=== PATIENT | female | born 1995 | race Two or more races ===

== ENCOUNTER 2022-09-23 08:05 | Outpatient (OUT) | payer OTHER, SELFPAY ==
[2022-09-23 08:21] LABS: Basophils Percent Auto 0.3 % (0.2-2.0); Eosinophils Absolute Auto 0.1 10^3/uL (0.0-0.7); Eosinophils Percent Auto 1.4 % (0.9-7.0); Hematocrit 32.9 % (36.0-48.0); Hemoglobin 11.2 g/dL (12.0-16.0); Immature Granulocytes Abs Auto 0.03 10^3/uL (0.00-0.03); Immature Granulocytes Pct Auto 0.5 % (0.0-0.5); Lymphocytes Absolute Auto 1.3 10^3/uL (1.2-3.8); Lymphocytes Percent Auto 20.1 % (20.5-60.0); Mean Corpuscular Hemoglobin 31.6 pg (26.7-34.0); Mean Corpuscular Volume 92.9 fL (81.0-99.0); Mean Platelet Volume 9.3 fL (9.5-13.5); Monocytes Absolute Auto 0.4 10^3/uL (0.3-0.8); Monocytes Percent Auto 5.5 % (1.7-12.0); Neutrophils Absolute Auto 4.7 10^3/uL (1.4-6.5); Neutrophils Percent Auto 72.2 % (43.0-75.0); Platelet Count 212 10^3/uL (150-450); Red Blood Count 3.54 10^6/uL (4.20-5.40); Red Cell Distribution Width 12.6 % (11.0-15.0); White Blood Count 6.5 10^3/uL (4.0-11.0)
[2022-09-23 08:47] LABS: Glucose 1 Hour 109 mg/dL
== END 2022-09-23 08:06 ==
LOC: LAB 08:05
PROVIDERS: PCP Physician Assistant; Visit Provider Physician Assistant
DX: Z34.90 Encounter for supervision of normal pregnancy, unspecified, unspecified trimester (principal)
CPT/HCPCS: 36415; 82950; 85025

== ENCOUNTER 2022-11-28 20:31 | Outpatient (REF) | payer OTHER, SELFPAY | END 2022-11-28 20:32 | disposition home or self-care (01) | LOC: LAB 20:31 | PROVIDERS: PCP Physician Assistant; Visit Provider Obstetrics & Gynecology | DX: Z34.93 Encounter for supervision of normal pregnancy, unspecified, third trimester (principal) | CPT/HCPCS: 87081 ==

== ENCOUNTER 2022-12-06 17:04 | Outpatient (OUT) | payer OTHER, SELFPAY ==
--- NOTE | 2022-12-06 17:05 | US_ITS ---
[address] [address] Patient Name: TARA PACE MRN: [id number] date: 1995 Sex: F Assigned Patient Location: US Current Patient Location: Accession/Order Number: [id number] Exam Date: 12/06/2022 17:06 Report Date: 12/09/2022 15:37 At the request of: KELBY CHAVEZ Procedure: US OB growth EXAMINATION: US OB growth HISTORY: O26.849 SIZE INCONSISTENT WITH DATES COMPARISON: Ultrasound anatomy 08/19/2022 FINDINGS: Heart Rate: 142.1 bpm Number: 1.0 Position: CEPHALIC Amniotic Fluid Volume: 11.4 cm Maximum Vertical Pocket: 3.4 cm BIOMETRY: BPD: 8.5 cm cm; 34 weeks 3 days; <3% HC: 32.6 cmcm; 36 weeks 6 days; 10% AC: 32.6 cm cm; 36 weeks 3 days; 22% FL: 7.5 cm cm; 38 weeks 2 days; 57% EFW: 3020.0 grams; 28% FL/AC: 23.0 FL/BPD: 87.6 HC/AC: 1.0 GESTATIONAL AGE: Age by EDC: 38 weeks 1 days MEAGAN by EDC: 12/19/2022 Age by US: 36 weeks 4 days MEAGAN by US: 12/30/2022 US/US OB growth IMPRESSION: 1. Single live intrauterine with growth detailed above. 2. Biparietal diameter is less than 3rd percentile. Electronically authenticated by: LOU VILLEGAS Date: 12/09/2022 15:37
== END 2022-12-06 17:05 | disposition home or self-care (01) ==
LOC: US 17:04
PROVIDERS: PCP Physician Assistant; Visit Provider Obstetrics & Gynecology
DX: O26.843 Uterine size-date discrepancy, third trimester (principal); Z3A.38 38 weeks gestation of pregnancy
CPT/HCPCS: 76816

== ENCOUNTER 2022-12-12 01:52 | Inpatient (IN) | payer OTHER, SELFPAY ==
[2022-12-12] VITALS (12 sets, daily range): BP systolic 98–117; BP diastolic 56–65; PULSE 61–79; RESP 18; TEMP 36.8–36.9
[2022-12-12 02:24] LABS: Hematocrit 34.3 % (36.0-48.0); Hemoglobin 11.6 g/dL (12.0-16.0); Mean Corpuscular HGB Conc 33.8 g/dL (29.9-35.2); Mean Corpuscular Hemoglobin 30.4 pg (26.7-34.0); Platelet Count 214 10^3/uL (150-450); Red Blood Count 3.81 10^6/uL (4.20-5.40); White Blood Count 7.2 10^3/uL (4.0-11.0)
--- NOTE | 2022-12-12 02:27 | PM.OBPRCVD ---
Procedure Intrapartal events: None Induction method: none Delivery augmentation: rupture of membranes Delivery monitor: external FHT and external uterine Route of delivery: Episiotomy Description: none Laceration description: none Estimated blood loss (mL): 200 Anesthesia type: None Disposition: floor Delivery date: 12/12/22 Gender: female presentation: vertex Placental delivery description: Spontaneous cord description: 3 Vessels
[2022-12-12] MEDS: IBUPROFEN 600 MG TABLET PO ×2 (04:18→17:15)
[2022-12-13 00:23] VITALS: BP 112/54; PULSE 60
[2022-12-13 00:24] VITALS: BP 112/54; PULSE 60; RESP 16; TEMP 36.7
[2022-12-13] MEDS: IBUPROFEN 600 MG TABLET PO (00:35)
--- NOTE | 2022-12-13 01:27 | W.PC.ACHO ---
Registration Status: ADM IN Primary Language: Micronesian Preferred Language: Micronesian Active Medications Generic Name Dose Route Start Last Admin Trade Name Freq PRN Reason Stop Dose Admin Acetaminophen 650 mg 12/12/22 02:28 Acetaminophen 325 Mg Tablet PO Q6H PRN Mild Pain Al Hydroxide/Mg Hydroxide 2,400 mg 12/12/22 02:28 Magnesium Hydroxide 2,400 Mg/10 Ml Oral.Susp PO Q6H PRN Dyspepsia Benzocaine/Menthol 1 applic 12/12/22 02:28 Benzocaine/Menthol 85 Gram Bottle TOPICAL Q2H PRN Pain Carboprost Tromethamine 250 mcg 12/12/22 02:07 Carboprost Tromethamine 250 Mcg/Ml 1 Ml Vial IM 12/13/22 02:08 Q15M PRN Bleeding Diphtheria/Pertussis/Tetanus Vacc 0.5 ml 12/14/22 09:00 Adacel Diph,Pertuss(Acell),Tet Vac/Pf 0.5 Ml Adult Syringe IM 12/14/22 09:01 .ONCE ONE Docusate Sodium 100 mg 12/13/22 09:00 Docusate Sodium 100 Mg Capsule PO BID RADHA Sodium Chloride 1,000 mls @ 125 mls/hr 12/12/22 02:15 Sodium Chloride 0.9% 1,000 Ml IV .Q8H RADHA Ibuprofen 600 mg 12/12/22 02:28 12/13/22 00:35 Ibuprofen 600 Mg Tablet PO 600 mg Q6H PRN Administration Moderate Pain Measles/Mumps/Rubella Vaccine Live 0.5 ml 12/14/22 09:00 Measles,Mumps,Rubella Vacc/Pf 0.5 Ml Vial SQ 12/14/22 09:01 .ONCE ONE Methylergonovine Maleate 0.2 mg 12/12/22 02:07 Methylergonovine Maleate 0.2 Mg Tablet PO 12/13/22 02:08 Q4H PRN Uterine Contractility/Contract Methylergonovine Maleate 0.2 mg 12/12/22 02:07 Methylergonovine Maleate 0.2 Mg/Ml Ampule IM 12/13/22 02:08 ONCE PRN Uterine Contractility/Contract Misoprostol 600 mcg 12/12/22 02:07 Misoprostol 100 Mcg Tablet PO 12/13/22 02:08 ONCE PRN Uterine Bleeding Misoprostol 800 mcg 12/12/22 02:07 Misoprostol 100 Mcg Tablet SL 12/13/22 02:08 ONCE PRN Uterine Bleeding Misoprostol 1,000 mcg 12/12/22 02:07 Misoprostol 100 Mcg Tablet VA 12/13/22 02:08 ONCE PRN Uterine Bleeding Ondansetron HCl 4 mg 12/12/22 02:07 Ondansetron Pf 4 Mg/2 Ml Vial IV Q6H PRN Nausea And Vomiting Ondansetron HCl 4 mg 12/12/22 02:07 Ondansetron 4 Mg Rapdis Tablet SL Q6H PRN Nausea And Vomiting Senna 17.2 mg 12/12/22 20:00 Sennosides 8.6 Mg Tablet PO QHS PRN Constipation Simethicone 80 mg 12/12/22 02:28 Simethicone 80 Mg Tab.Chew PO QID PRN Abdominal Distention Temazepam 15 mg 12/12/22 02:28 Temazepam 15 Mg Capsule PO QHS PRN Sleep Witch Leila/Glycerin 1 pad 12/12/22 02:28 Glycerin/Witch Leila Pads TOPICAL Q2H PRN Pain Diet Category Date Time Status Regular Consistency Diet Diet 12/12/22 Dinner Active Neurology Patient orientation (short person,place,time,situation list) Respiratory Lung sounds [Bilateral clear Throughout] Lung sounds [Bilateral clear Throughout] Oxygen Delivery Method Room Air Cardiology Heart Sounds Strong,Regular Bowels Date of Last Bowel Movement 12/13/22 Renal Bladder Pattern Continent
[2022-12-13 05:53] LABS: Basophils Percent Auto 0.4 % (0.2-2.0); Eosinophils Absolute Auto 0.2 10^3/uL (0.0-0.7); Eosinophils Percent Auto 2.6 % (0.9-7.0); Hematocrit 32.6 % (36.0-48.0); Immature Granulocytes Abs Auto 0.06 10^3/uL (0.00-0.03); Immature Granulocytes Pct Auto 0.7 % (0.0-0.5); Lymphocytes Absolute Auto 2.3 10^3/uL (1.2-3.8); Lymphocytes Percent Auto 25.7 % (20.5-60.0); Mean Corpuscular HGB Conc 33.7 g/dL (29.9-35.2); Mean Corpuscular Hemoglobin 31.1 pg (26.7-34.0); Mean Corpuscular Volume 92.1 fL (81.0-99.0); Mean Platelet Volume 10.1 fL (9.5-13.5); Monocytes Absolute Auto 0.6 10^3/uL (0.3-0.8); Monocytes Percent Auto 6.8 % (1.7-12.0); Neutrophils Absolute Auto 5.8 10^3/uL (1.4-6.5); Neutrophils Percent Auto 63.8 % (43.0-75.0); Platelet Count 190 10^3/uL (150-450); Red Blood Count 3.54 10^6/uL (4.20-5.40); Red Cell Distribution Width 13.3 % (11.0-15.0); White Blood Count 9.1 10^3/uL (4.0-11.0)
--- NOTE | 2022-12-13 07:24 | W.PC.ACHO ---
Registration Status: ADM IN Primary Language: Algerian Preferred Language: Algerian Active Medications 0715- Report given to Jaxson Adler RN Generic Name Dose Route Start Last Admin Trade Name Freq PRN Reason Stop Dose Admin Acetaminophen 650 mg 12/12/22 02:28 Acetaminophen 325 Mg Tablet PO Q6H PRN Mild Pain Al Hydroxide/Mg Hydroxide 2,400 mg 12/12/22 02:28 Magnesium Hydroxide 2,400 Mg/10 Ml Oral.Susp PO Q6H PRN Dyspepsia Benzocaine/Menthol 1 applic 12/12/22 02:28 Benzocaine/Menthol 85 Gram Bottle TOPICAL Q2H PRN Pain Diphtheria/Pertussis/Tetanus Vacc 0.5 ml 12/14/22 09:00 Adacel Diph,Pertuss(Acell),Tet Vac/Pf 0.5 Ml Adult Syringe IM 12/14/22 09:01 .ONCE ONE Docusate Sodium 100 mg 12/13/22 09:00 Docusate Sodium 100 Mg Capsule PO BID RADHA Sodium Chloride 1,000 mls @ 125 mls/hr 12/12/22 02:15 Sodium Chloride 0.9% 1,000 Ml IV .Q8H RADHA Ibuprofen 600 mg 12/12/22 02:28 12/13/22 00:35 Ibuprofen 600 Mg Tablet PO 600 mg Q6H PRN Administration Moderate Pain Measles/Mumps/Rubella Vaccine Live 0.5 ml 12/14/22 09:00 Measles,Mumps,Rubella Vacc/Pf 0.5 Ml Vial SQ 12/14/22 09:01 .ONCE ONE Ondansetron HCl 4 mg 12/12/22 02:07 Ondansetron Pf 4 Mg/2 Ml Vial IV Q6H PRN Nausea And Vomiting Ondansetron HCl 4 mg 12/12/22 02:07 Ondansetron 4 Mg Rapdis Tablet SL Q6H PRN Nausea And Vomiting Senna 17.2 mg 12/12/22 20:00 Sennosides 8.6 Mg Tablet PO QHS PRN Constipation Simethicone 80 mg 12/12/22 02:28 Simethicone 80 Mg Tab.Chew PO QID PRN Abdominal Distention Temazepam 15 mg 12/12/22 02:28 Temazepam 15 Mg Capsule PO QHS PRN Sleep Witch Leila/Glycerin 1 pad 12/12/22 02:28 Glycerin/Witch Leila Pads TOPICAL Q2H PRN Pain Diet Category Date Time Status Regular Consistency Diet Diet 12/12/22 Dinner Active Respiratory Lung sounds [Bilateral clear Throughout] Oxygen Delivery Method Room Air Bowels Date of Last Bowel Movement 12/13/22
[2022-12-13 09:42] VITALS: BP 122/58; PULSE 72
--- NOTE | 2022-12-13 10:54 | PM.OBPN ---
OB - PN: Subj Subjective Patient comments: no complaints [place] status: doing well Exam Constitutional Vital Signs, click to edit/add: Last Vital Signs Temp 98.1 F 12/13/22 00:24 Pulse 72 12/13/22 09:42 Resp 16 12/13/22 00:24 BP 122/58 12/13/22 09:42 O2 Del Method Room Air 12/13/22 00:24 Documenting provider has reviewed patient's vital signs: yes Common normals: no apparent distress Respiratory Common normals: normal respiratory effort and clear to auscultation bilaterally Cardio Common normals: regular rate and regular rhythm Extremity Common normals: no clubbing, cyanosis or edema and no calf tenderness Results Labs Labs: Short CBC 12/13/22 Range/Units 05:46 WBC 9.1 (4.0-11.0) 10^3/uL Hgb 11.0 L (12.0-16.0) g/dL Hct 32.6 L (36.0-48.0) % Plt Count 190 (150-450) 10^3/uL OB - PN: A/P Plan - Vaginal Delivery day: 2 Plan: routine care, discharge home and follow up 6 weeks Time Spent with Patient Time: Total time spent is greater than 50% in coordination of care (as documented) at patient's floor/unit and/or counseling patient: Total time spent with greater than 50% in coordination of care (as documented) at patient's floor/unit and/or counseling patient: less than 15 minutes
== END 2022-12-13 13:40 | disposition home or self-care (01) | DRG 807 ==
PROVIDERS: Admitting Provider Obstetrics & Gynecology; PCP Physician Assistant; Visit Provider Obstetrics & Gynecology
DX: O80 Encounter for full-term uncomplicated delivery (principal); Z37.0 Single live birth; Z3A.00 Weeks of gestation of pregnancy not specified
CPT/HCPCS: 36415; 80307; 85025; 85027; 86850; 86900; 86901; 96374

== ENCOUNTER 2023-01-27 21:02 | Outpatient (REF) | payer OTHER, SELFPAY ==
[2023-01-31 10:10] LABS: Age Gdln ACOG Testing Note (.); IGP, rfx Aptima HPV ASCU Note (.)
== END 2023-01-27 21:03 | disposition home or self-care (01) ==
LOC: LAB 21:02
PROVIDERS: PCP Physician Assistant; Visit Provider Obstetrics & Gynecology
DX: R87.612 Low grade squamous intraepithelial lesion on cytologic smear of cervix (LGSIL) (principal)
CPT/HCPCS: G0145

== ENCOUNTER 2023-08-05 22:04 | Outpatient (REF) | payer OTHER, SELFPAY ==
[2023-08-12 12:10] LABS: Age Gdln ACOG Testing Note (.); IGP, rfx Aptima HPV ASCU Note (.)
== END 2023-08-05 22:05 | disposition home or self-care (01) ==
LOC: LAB 22:04
PROVIDERS: PCP Physician Assistant; Visit Provider Obstetrics & Gynecology
DX: Z01.419 Encounter for gynecological examination (general) (routine) without abnormal findings (principal)
CPT/HCPCS: G0145

== ENCOUNTER 2023-08-26 15:23 | Outpatient (REF) | payer OTHER, SELFPAY | END 2023-08-26 15:24 | disposition home or self-care (01) | LOC: LAB 15:23 | PROVIDERS: PCP Physician Assistant; Visit Provider Obstetrics & Gynecology | DX: R87.612 Low grade squamous intraepithelial lesion on cytologic smear of cervix (LGSIL) (principal) | CPT/HCPCS: 88305 ==

== ENCOUNTER 2023-10-17 08:50 | Outpatient (OUT) | payer OTHER, SELFPAY ==
--- OUTSIDE RECORDS SUMMARY | 2023-10-17 09:03 | XMS_ITS | CCD ---
Author Organization [facility] Care Team Providers Care Mine Inspector Name Role Phone KRYSTINA SEGURA Unavailable Unavailable ADITYA, ROB Unavailable Unavailable CHARLES, SEGUN AVERY Unavailable Unavailabl e ADITYA, ROB Unavailable Unavailable KATHY ., DR LAMA Attending Unavailable REQUEST, NONE LISTED Primary Care Unavaila ble KATHY ., DR LAMA Consulting Unavailable KATHY ., DR LAMA Admitting Unavailable KATHY ., DR LAMA Procedure Practitioner Unavail able KATHY ., DR LAMA Attending Unavailable REQUEST, DR FAJARDO LISTED Primary Care Unavaila ble KATHY ., DR LAMA Admitting Unavailable KARASIK ., DR HAMMONDS Attending Unavailabl e KARASIK ., DR HAMMONDS Consulting Unavailabl e KARASIK ., DR HAMMONDS Admitting Unavailabl e REQUEST, DR FAJARDO LISTED Primary Care Unavaila ble KATHY ., DR LAMA Admitting Unavailable KATHY ., DR LAMA Attending Unavailable REQUEST, DR FAJARDO LISTED Primary Care Unavaila ble WEST, DR MIRANDA Barrett Consulting Unavailable KATHY ., DR LAMA Consulting Unavailable KATHY ., DR LAMA Admitting Unavailable KATHY ., DR LAMA Attending Unavailable REQUEST, DR FAJARDO LISTED Primary Care Unavaila ble KATHY ., DR LAMA Consulting Unavailable KATHY ., DR LAMA Attending Unavailable REQUEST, DR FAJARDO LISTED Primary Care Unavaila ble KATHY ., DR LAMA Consulting Unavailable KATHY ., DR LAMA Admitting Unavailable KATHY ., DR LAMA Admitting Unavailable KATHY ., DR LAMA Attending Unavailable REQUEST, DR FAJARDO LISTED Primary Care Unavaila ble KATHY ., DR LAMA Consulting Unavailable ZIEBER, DR LOU Chávez Consulting Unavailable KATHYKELBY Attending Unavailable KATHY, KELBY Attending Unavailable KATHY, KELBY Attending Unavailable Problems Active Problems Problem Classification Problem Date Documented Date Episodic/Chronic Immunizations and screening for infectious disease (3 sources) Encounter for screening for infections with a predominantly sexual mode of transmission; Translations: [Encounter for screening for human papillomavirus (HPV)] Onset: 12-26-2016 Episodic Menstrual disorders (4 sources) Irregular menstruation, unspecified; Translations: [IRREGULAR MENSTRUATION UNSPECIFIED] Onset: 07-12-2022 Chronic Other female genital disorders (1 source) Other specified noninflammatory disorders of vagina; Translations: [OTH SPEC NONINFLAMMATORY D/O VAGINA] Onset: 07-08-2022 Episodic Other and delivery including normal (13 sources) state, incidental; Translations: [Encounter for supervision of normal , unspecified, second trimester] Onset: 10-15-2021 Episodic Unclassified (10 sources) Encounter for screening for malignant neoplasm of cervix; Translations: [Encounter for screening, unspecified] Onset: 01-30-2017 Episodic Unclassified (1 source) Other microscopic hematuria; Translations: [Other microscopic hematuria] Onset: 12-26-2016 Unclassified (1 source) CONTACT W/AND (SUSP) EXPOS COVID-19; Translations: [CONTACT W/AND (SUSP) EXPOS COVID-19] Onset: 10-16-2021 Past or Other Problems Problem Classification Problem Date Documented Da te Episodic/Chronic Bacterial infection (1 source) Chlamydial infection, unspecified; Translations: [Chlamydial infection, unspecified] Onset: 01-30-2017 Episodic Genitourinary symptoms and ill-defined conditions (3 sources) Dysuria; Translations: [Frequency of micturition] Onset: 12-26-2016 Episodic OB-related trauma to perineum and vulva (1 source) First degree perineal laceration during delivery; Translations: [FIRST DEG PERINEAL LAC DUR DELIV] Onset: 10-16-2021 Episodic Other complications of (3 sources) Maternal care for excessive growth, third trimester, not applicable or unspecified; Translations: [MAT CARE EXCSS FTL GRTH 3RD TRI UNS] Onset: 10-09-2021 Episodic Residual codes; unclassified (1 source) 39 weeks gestation of ; Translations: [39 WEEKS GESTATION OF ] Onset: 10-16-2021 Episodic Results Test Name Value Interpretation Reference Range Facility US PREG CERVICAL LENGTHon US PREG CERVICAL LENGTH EXAMINATION: US PREG ANATOMY SINGLE, US PREG CERVICAL LENGTH HISTORY: Patient currently COMPARISON: No relevant comparison available. TECHNIQUE: Transabdominal sonographic examination was performed for obstetrical and evaluation. FINDINGS: Number: 1 Heart Rate: 136 H.B. /min Amniotic Fluid Volume: Subjectively normal Placental Location: Anterior fundal. Grade 0. Placental edge 9 cm from the internal os position: Breech presentation, longitudinal lie Cervix Length: 3.7 cm, closed Normal anatomy: Lateral ventricles, cerebellum, posterior fossa, nose, lips, orbits, four-chamber heart, RVOT, LVOT, diaphragm, stomach, kidneys, abdominal cord insertion, bladder, umbilical cord, three-vessel cord, spine, extremities BIOMETRY: BPD: 5 cm 21 weeks 1 day 6% HC: 19.6 cm 21 weeks 6 days, 12% AC: 18.4 cm, 23 weeks 1 day, 63% FL: 3.9 cm 22 weeks 4 days, 38% EFW:529 g, 1 lb. 3 oz., 51%; FL/AC: 21.2 FL/BPD: 78.2 HC/AC: 1.07 GESTATIONAL AGE: Age by EDC: 22 weeks 4 days MEAGAN by EDC: 12/19/2022 Age by current US: 22 weeks 1 day MEAGAN by current US: 12/22/2022 IMPRESSION: Normal anatomy scan Closed cervix measuring 3.7 cm in length *Reference: AIUM Practice Guideline for the performance of Obstetric Ultrasound Examinations, January 19, 2007. Electronically authenticated by: MIRANDA ROPER Date: 2022-08-21 07:30 Normal [facility] AFP MATERNAL FOR SPINA BIFID Aon 08-09-2022 AFP MoM 1.14 Normal [facility] Comment on above: Performed By: #### 4 [id number] #### [facility] [address] [address] [address] Farideh Kapoor AFP Value 73.2 ng/mL Normal [facility] Comment on above: Performed By: #### 4 [id number] #### [facility] [address] [address] [address] Farideh Kapoor AFP, Serum for Spina Bifida Report Normal [facility] Comment on above: Performed By: #### 4 [id number] #### [facility] [address] [place] [address] Dr. Farideh Kapoor Comment Comment Normal [facility] Comment on above: Result Comment: Reena Finn, Ph.D., [facility] Director . References: Available Upon Request. . Multiples Of Median Cutoffs For AFP Elevations [place] 2.5 Black 2.8 IDD 2.0 Twins 4.5 Abbreviation Definitions IDD - Insulin Dep Diabetes OSBR - Open Spina Bifida Risk . For further inquiries contact [employer] [facility] at [phone]. . This test was developed and its performance characteristics determined by [employer]. It has not been cleared or approved by the Food and Drug Administration. Performed By: #### 4 [id number] #### [facility] [address] [place] [address] Dr. Farideh Kapoor Gest Age Collection Date 20.7 weeks Normal [facility] Comment on above: Performed By: #### 4 [id number] #### [facility] [address] [place] [address] Dr. Farideh Kapoor Gestat, Age Based on Ultrasound Normal [facility] Comment on above: Result Comment: 17.1 on 07/12/2022 Recalculations are not recommended when gestational dating by LMP and ultrasound are within 10 days. Performed By: #### 4 [id number] #### [facility] [address] [place] [address] Dr. Farideh Kapoor Insulin Dep Diabetes No Normal [facility] Comment on above: Performed By: #### 4 [id number] #### [facility] [address] [place] [address] Dr. Farideh Kapoor Interpretation Comment Normal [facility] Comment on above: Result Comment: Inte rpretation: Screen Negative . This result is screen negative for OSB. The AFP MoM calculated is based on the gestational age provided. MS-AFP can identify up to 80% of open neural tube defects. Closed neural tube defects and some open defects may not be detected by this test. This test does not screen for Down Syndrome or Trisomy 18. If screening for Down Syndrome or Trisomy 18 is desired, contact [employer] to discuss available options. The [place] [employer] recommends amniocentesis be offered to women age 35 and older. Performed By: #### 4 [id number] #### [facility] [address] [place] [address] Dr. Farideh Kapoor [age] Normal [facility] Comment on above: Performed By: #### 4 [id number] #### [facility] [address] [place] [address] Dr. Farideh Kapoor Multiple Gestation No Normal [facility] Comment on above: Performed By: #### 4 [id number] #### [facility] [address] [place] [address] Dr. Farideh Kapoor OSBR Risk 1 [place] [address] [facility] Comment on above: Performed By: #### 4 [id number] #### [facility] [address] [place] [address] Dr. Farideh Kapoor PDF . Normal [facility] Comment on above: Performed By: #### 4 [id number] #### [facility] [address] [place] [address] Dr. Farideh Kapoor Race Normal [facility] Comment on above: Performed By: #### 4 [id number] #### [facility] [address] [place] [address] Dr. Farideh Kapoor Test Results: Negative [facility] Comment on above: Performed By: #### 4 [id number] #### [facility] [address] [place] [address] Dr. Farideh Kapoor HEP B SURFACE ANTIGEN SCREEN on 08-08-2022 HBsAg Screen Negative Normal Negative [facility] Comment on above: Performed By: #### H BSANS #### [facility] [address] [place] [address] Dr. Farideh Kapoor HEPATITIS C VIRUS AB W/ REFL EX QUANTon 08-08-2022 HCV AB Non-Reactive Normal Non Reactive [facility] Comment on above: Performed By: #### H CVPCRR #### [facility] [address] [place] [address] Dr. Farideh Kapoor Interpretation: Comment Normal [facility] Comment on above: Result Comment: Not infected with HCV unless early or acute infection is suspected (which may be delayed in an immunocompromised individual), or other evidence exists to indicate HCV infection. Performed By: #### H CVPCRR #### [facility] [address] [place] [address] Dr. Farideh Kapoor HIV 1 AND 2 WITH REFLEXon HIV Screen 4th Generation wRfx Non-Reactive Normal Non Reactive [facility] Comment on above: Result Comment: HIV Negative HIV-1/HIV-2 antibodies and HIV-1 p24 antigen were NOT detected. There is no laboratory evidence of HIV infection. Performed By: #### C BC #### [facility] [address] [place] [address] Dr. Farideh Kapoor RPR QUANTon 08-08-2022 Rapid Plasma Reagin, Quant Non-Reactive Normal NonRea<1:1 [facility] Comment on above: Result Comment: Plea se Note: This test does not meet current guidelines for screening and diagnosis of syphilis. This test is intended for following treatment response in patients being treated for syphilis infection. To screen for syphilis infection, a reflex cascade that includes both RPR and a treponema-specific assay should be utilized, such as Treponema pallidum (Syphilis) Screening [place] (869468) or Rapid Plasma Reagin (RPR) Test With Reflex to Quantitative RPR and Confirmatory Treponema pallidum Antibodies (153266). Performed By: #### 4 [id number] #### [facility] [address] [place] [address] Dr. Farideh Kapoor RUBELLA AB IGGon 08-08-2022 Rubella Antibodies, IgG <0.90 Critically low Immune >0.99 [facility] Comment on above: Result Comment: Non- immune <0.90 Equivocal 0.90 - 0.99 Immune >0.99 Performed By: #### 4 [id number] #### [facility] [address] [place] [address] Dr. Farideh Kapoor CBC AUTO DIFFon 08-06-2022 BASO # 0.0 103/ul Normal 0.0-0.1 [facility] Comment on above: Performed By: #### 4 [id number] #### [facility] [address] [place] [address] Dr. Farideh Kapoor Basophils/100 WBC (Bld) 0.2 % Normal 0.2-2.0 [facility] Comment on above: Performed By: #### 4 [id number] #### [facility] [address] [place] [address] Dr. Farideh Kapoor EO # 0.1 103/ul Normal 0.0-0.7 [facility] Comment on above: Performed By: #### 4 [id number] #### [facility] [address] [place] [address] Dr. Farideh Kapoor Eosinophils/100 WBC (Bld) 0.7 % Critically low 0.9-7.0 [facility] Comment on above: Performed By: #### 4 [id number] #### [facility] [address] [place] [address] Dr. Farideh Kapoor Erythrocyte distribution width (RBC) [Ratio] 13.2 % Normal 11.0-15.0 [facility] Comment on above: Performed By: #### 4 [id number] #### [facility] [address] [place] [address] Dr. Farideh Kapoor Hematocrit (Bld) [Volume fraction] 35.1 % Critically low 36.0-48.0 [facility] Comment on above: Performed By: #### 4 [id number] #### [facility] [address] [place] [address] Dr. Farideh Kapoor Hemoglobin (Bld) [Mass/Vol] 12.1 g/dL Normal 12.0-16.0 [facility] Comment on above: Performed By: #### 4 [id number] #### [facility] [address] [place] [address] Dr. Farideh Kapoor IG # 0.03 10e3/ul Normal 0.00-0.03 [facility] Comment on above: Performed By: #### 4 [id number] #### [facility] [address] [place] [address] Dr. Farideh Kapoor IG % 0.3 % Normal 0.0-0.5 [facility] Comment on above: Performed By: #### 4 [id number] #### [facility] [address] [place] [address] Dr. Farideh Kapoor LYMPH # 1.0 103/ul Critically low 1.2-3.8 [facility] Comment on above: Performed By: #### 4 [id number] #### [facility] [address] [place] [address] Dr. Farideh Kapoor Lymphocytes/100 WBC (Bld) 11.1 % Critically low 20.5-60.0 [facility] Comment on above: Performed By: #### 4 [id number] #### [facility] [address] [place] [address] Dr. Farideh Kapoor MANUAL DIFF REQ NO Normal [facility] Comment on above: Performed By: #### 4 [id number] #### [facility] [address] [place] [address] Dr. Farideh Kapoor MCH (RBC) [Entitic mass] 31.0 pg Normal 26.7-34.0 [facility] Comment on above: Performed By: #### 4 [id number] #### [facility] [address] [place] [address] Dr. Farideh Kapoor MCHC (RBC) [Mass/Vol] 34.5 g/dL Normal 29.9-35.2 [facility] Comment on above: Performed By: #### 4 [id number] #### [facility] [address] [place] [address] Dr. Farideh Kapoor MCV (RBC) [Entitic vol] 90.0 fL Normal 81.0-99.0 [facility] Comment on above: Performed By: #### 4 [id number] #### [facility] [address] [place] [address] Dr. Farideh Kapoor MONO # 0.4 103/ul Normal 0.3-0.8 [facility] Comment on above: Performed By: #### 4 [id number] #### [facility] [address] [place] [address] Dr. Farideh Kapoor Monocytes/100 WBC (Bld) 4.6 % Normal 1.7-12.0 [facility] Comment on above: Performed By: #### 4 [id number] #### [facility] [address] [address] [address] Farideh Kapoor NEUT # 7.4 103/ul Critically high 1.4-6.5 [facility] Comment on above: Performed By: #### 4 [id number] #### [facility] [address] [place] [address] Dr. Farideh Kapoor Neutrophils/100 WBC (Bld) 83.1 % Critically high 43.0-75.0 [facility] Comment on above: Performed By: #### 4 [id number] #### [facility] [address] [place] [address] Dr. Farideh Kapoor Platelet mean volume (Bld) [Entitic vol] 9.0 fL Critically low 9.5-13.5 [facility] Comment on above: Performed By: #### 4 [id number] #### [facility] [address] [place] [address] Dr. Farideh Kapoor PLT 257 103/ul Normal 150-450 [facility] Comment on above: Performed By: #### 4 [id number] #### [facility] [address] [place] [address] Dr. Farideh Kapoor RBC 3.90 106/ul Critically low 4.20-5.40 [facility] Comment on above: Performed By: #### 4 [id number] #### [facility] [address] [place] [address] Dr. Farideh Kapoor WBC 8.9 103/ul Normal 4.0-11.0 [facility] Comment on above: Performed By: #### 4 [id number] #### [facility] [address] [place] [address] Dr. Farideh Kapoor CULTURE URINEon 08-06-2022 CULTURE URINE Culture Observations : NO GROWTH. Normal [facility] Comment on above: Performed By: #### U RCX #### [facility] [address] [place] [address] Dr. Farideh Kapoor GLYCOHEMOGLOBIN A1Con 2022 ADA RECOMMENDATION SEE BELOW Normal [facility] Comment on above: Result Comment: ADA RECOMMENDED LIMIT 4.0 - 6.0 ADA THERAPEUTIC TARGET < 7.0 ACTION SUGGESTED > 7.0 Performed By: #### C BC #### [facility] [address] [place] [address] Dr. Farideh Kapoor Glucose [Mass/Vol] 74 mg/dL Normal [facility] Comment on above: Performed By: #### C BC #### [facility] [address] [place] [address] Dr. Farideh Kapoor HbA1c (Bld) [Mass fraction] 4.2 % Critically low 4.5-6.2 [facility] Comment on above: Performed By: #### C BC #### [facility] [address] [place] [address] Dr. Farideh Kapoor TSHon 08-06-2022 TSH 1.522 uIU/mL Normal 0.358-3.740 [facility] Comment on above: Performed By: #### T SH #### [facility] [address] [place] [address] Dr. Farideh Kapoor TYPE AND SCREENon 08-06-2022 TYPE AND SCREEN Negative Normal [facility] Comment on above: Performed By: #### T NS #### [facility] [address] [place] [address] Dr. Farideh Kapoor US PREG DATING >14WEEKSon US PREG DATING >14WEEKS EXAMINATION: US PREG DATING >14WEEKS HISTORY: Missed period COMPARISON: No relevant comparison available. FINDINGS: Heart Rate: 148.0 bpm Number: 1.0 Position: BREECH Amniotic Fluid Volume: Subjectively normal BIOMETRY: BPD: 3.5 cm cm; 16 weeks 5 days HC: 12.7 cmcm; 16 weeks 3 days AC: 12.0 cm cm; 17 weeks 5 days FL: 2.5 cm cm; 17 weeks 5 days EFW: 198.3 grams FL/AC: 21.1 FL/BPD: 73.1 HC/AC: 1.1 GESTATIONAL AGE: Age by EDC: Unknown LMP MEAGAN by EDC: Age by US: 17 weeks 1 day MEAGAN by US: 12/19/2022 IMPRESSION: 1. Single live intrauterine 17 weeks 1 day Electronically authenticated by: LOU ZENGSAMANMARGARITA Date: 2022-07-12 10:40 Normal [facility] PAP ACOG PANEL 2: 21 to 29on 07-11-2022 . . Normal [facility] Comment on above: Performed By: #### 4 [id number] #### [facility] [address] [place] [address] Dr. Farideh Kapoor Age Gdln ACOG Testing - Normal [facility] Comment on above: Performed By: #### 4 [id number] #### [facility] [address] [place] [address] Dr. Farideh Kapoor DIAGNOSIS: Comment Abnormal [facility] Comment on above: Result Comment: EPIT HELIAL CELL ABNORMALITY. LOW GRADE SQUAMOUS INTRAEPITHELIAL LESION (LSIL). Performed By: #### 4 [id number] #### [facility] [address] [place] [address] Dr. Farideh Kapoor Electronically signed by: Comment Normal [facility] Comment on above: Result Comment: Flavia Graham MD, Pathologist Performed By: #### 4 [id number] #### [facility] [address] [place] [address] Dr. Farideh Kapoor Methodology: Comment [facility] Comment on above: Result Comment: This liquid based ThinPrep(R) pap test was screened with the use of an image guided system. Performed By: #### 4 [id number] #### [facility] [address] [place] [address] Dr. Farideh Kapoor Note: Comment Normal [facility] Comment on above: Result Comment: The Pap smear is a screening test designed to aid in the detection of premalignant and malignant conditions of the uterine cervix. It is not a diagnostic procedure and should not be used as the sole means of detecting cervical cancer. Both false-positive and false-negative reports do occur. . Performed By: #### 4 [id number] #### [facility] [address] [place] [address] Dr. Fardieh Kapoor Pathologist Provided ICD10 Comment Normal [facility] Comment on above: Result Comment: [id number] Performed By: #### 4 [id number] #### [facility] [address] [place] [address] Dr. Farideh Kapoor Performed by: Comment Normal [facility] Comment on above: Result Comment: Anabell Ferraro, Smash Fixer Performed By: #### 4 [id number] #### [facility] [address] [address] [address] Farideh Kapoor Recommendation: Comment Abnormal [facility] Comment on above: Result Comment: Sugg est follow up as clinically appropriate. Performed By: #### 4 [id number] #### [facility] [address] [place] [address] Dr. Farideh Kapoor Reflex Criteria: Comment Normal [facility] Comment on above: Result Comment: The HPV DNA reflex criteria were not met with this specimen result therefore, no HPV testing was performed. . Performed By: #### 4 [id number] #### [facility] [address] [place] [address] Dr. Farideh Kapoor Specimen adequacy: Comment Normal [facility] Comment on above: Result Comment: Sati sfactory for evaluation. Endocervical and/or squamous metaplastic cells (endocervical component) are present. Performed By: #### 4 [id number] #### [facility] [address] [place] [address] Dr. Farideh Kapoor CHLAMYDIA/GONOCOCCUS TOMAS (SW AB/URINE/PAPon 07-05-2022 Chlamydia trachomatis, TOMAS Negative Normal Negative [facility] Comment on above: Performed By: #### C T/NGNA #### [facility] [address] [place] [address] Dr. Farideh Kapoor Neisseria gonorrhoeae, TOMAS Negative Normal Negative [facility] Comment on above: Performed By: #### C T/NGNA #### [facility] [address] [place] [address] Dr. Farideh Kapoor VAGINITIS/VAGINOSIS DNA PROB Arnel 07-04-2022 Margarita species Negative Normal Negative [facility] Comment on above: Performed By: #### 4 [id number] #### [facility] [address] [place] [address] Dr. Farideh Kapoor Gardnerella vaginalis Positive Abnormal Negative [facility] Comment on above: Performed By: #### 4 [id number] #### [facility] [address] [address] [address] Farideh Kapoor Trichomonas vaginalis Negative Normal Negative [facility] Comment on above: Performed By: #### 4 [id number] #### [facility] [address] [place] [address] Dr. Farideh Kapoor CBC AUTO DIFFon 10-10-2021 BASO # 0.0 103/ul Normal 0.0-0.1 [facility] Comment on above: Performed By: #### C BC #### [facility] [address] [place] [address] Dr. Farideh Kapoor Basophils/100 WBC (Bld) 0.2 % Normal 0.2-2.0 [facility] Comment on above: Performed By: #### C BC #### [facility] [address] [place] [address] Dr. Farideh Kapoor EO # 0.1 103/ul Normal 0.0-0.7 [facility] Comment on above: Performed By: #### C BC #### [facility] [address] [place] [address] Dr. Farideh Kapoor Eosinophils/100 WBC (Bld) 0.9 % Normal 0.9-7.0 [facility] Comment on above: Performed By: #### C BC #### [facility] [address] [place] [address] Dr. Farideh Kapoor Erythrocyte distribution width (RBC) [Ratio] 12.7 % Normal 11.0-15.0 [facility] Comment on above: Performed By: #### C BC #### [facility] [address] [place] [address] Dr. Farideh Kapoor Hematocrit (Bld) [Volume fraction] 31.9 % Critically low 36.0-48.0 [facility] Comment on above: Performed By: #### C BC #### [facility] [address] [place] [address] Dr. Farideh Kapoor Hemoglobin (Bld) [Mass/Vol] 11.2 g/dL Critically low 12.0-16.0 [facility] Comment on above: Performed By: #### C BC #### [facility] [address] [place] [address] Dr. Farideh Kapoor IG # 0.05 10e3/ul Critically high 0.00-0.03 [facility] Comment on above: Performed By: #### C BC #### [facility] [address] [place] [address] Dr. Farideh Kapoor IG % 0.4 % Normal 0.0-0.5 [facility] Comment on above: Performed By: #### C BC #### [facility] [address] [place] [address] Dr. Farideh Kapoor LYMPH # 1.3 103/ul Normal 1.2-3.8 [facility] Comment on above: Performed By: #### C BC #### [facility] [address] [place] [address] Dr. Farideh Kapoor Lymphocytes/100 WBC (Bld) 10.5 % Critically low 20.5-60.0 [facility] Comment on above: Performed By: #### C BC #### [facility] [address] [place] [address] Dr. Farideh Kapoor MANUAL DIFF REQ NO Normal [facility] Comment on above: Performed By: #### C BC #### [facility] [address] [place] [address] Dr. Farideh Kapoor MCH (RBC) [Entitic mass] 31.8 pg Normal 26.7-34.0 [facility] Comment on above: Performed By: #### C BC #### [facility] [address] [place] [address] Dr. Farideh Kapoor MCHC (RBC) [Mass/Vol] 35.1 g/dL Normal 29.9-35.2 [facility] Comment on above: Performed By: #### C BC #### [facility] [address] [place] [address] Dr. Farideh Kapoor MCV (RBC) [Entitic vol] 90.6 fL Normal 81.0-99.0 [facility] Comment on above: Performed By: #### C BC #### [facility] [address] [address] [address] Farideh Kapoor MONO # 1.2 103/ul Critically high 0.3-0.8 [facility] Comment on above: Performed By: #### C BC #### [facility] [address] [address] [address] Farideh Kapoor Monocytes/100 WBC (Bld) 9.4 % Normal 1.7-12.0 [facility] Comment on above: Performed By: #### C BC #### [facility] [address] [address] [address] Farideh Kapoor NEUT # 9.6 103/ul Critically high 1.4-6.5 [facility] Comment on above: Performed By: #### C BC #### [facility] [address] [place] [address] Dr. Farideh Kapoor Neutrophils/100 WBC (Bld) 78.6 % Critically high 43.0-75.0 [facility] Comment on above: Performed By: #### C BC #### [facility] [address] [address] [address] Farideh Kapoor Platelet mean volume (Bld) [Entitic vol] 9.2 fL Critically low 9.5-13.5 [facility] Comment on above: Performed By: #### C BC #### [facility] [address] [address] [address] Farideh Kapoor PLT 177 103/ul Normal 150-450 [facility] Comment on above: Performed By: #### C BC #### [facility] [address] [address] [address] Farideh Kapoor RBC 3.52 106/ul Critically low 4.20-5.40 [facility] Comment on above: Performed By: #### C BC #### [facility] [address] [address] [address] Farideh Kapoor WBC 12.3 103/ul Critically high 4.0-11.0 [facility] Comment on above: Performed By: #### C BC #### [facility] [address] [place] [address] Dr. Farideh Kapoor CBC AUTO DIFFon 10-09-2021 BASO # 0.0 103/ul Normal 0.0-0.1 [facility] Comment on above: Performed By: #### C BC #### [facility] [address] [place] [address] Dr. Farideh Kapoor Basophils/100 WBC (Bld) 0.1 % Critically low 0.2-2.0 [facility] Comment on above: Performed By: #### C BC #### [facility] [address] [place] [address] Dr. Farideh Kapoor EO # 0.1 103/ul Normal 0.0-0.7 [facility] Comment on above: Performed By: #### C BC #### [facility] [address] [place] [address] Dr. Farideh Kapoor Eosinophils/100 WBC (Bld) 1.1 % Normal 0.9-7.0 [facility] Comment on above: Performed By: #### C BC #### [facility] [address] [place] [address] Dr. Farideh Kapoor Erythrocyte distribution width (RBC) [Ratio] 12.7 % Normal 11.0-15.0 [facility] Comment on above: Performed By: #### C BC #### [facility] [address] [place] [address] Dr. Farideh Kapoor Hematocrit (Bld) [Volume fraction] 34.5 % Critically low 36.0-48.0 [facility] Comment on above: Performed By: #### C BC #### [facility] [address] [place] [address] Dr. Farideh Kapoor Hemoglobin (Bld) [Mass/Vol] 12.0 g/dL Normal 12.0-16.0 [facility] Comment on above: Performed By: #### C BC #### [facility] [address] [place] [address] Dr. Farideh Kapoor IG # 0.02 10e3/ul Normal 0.00-0.03 [facility] Comment on above: Performed By: #### C BC #### [facility] [address] [place] [address] Dr. Farideh Kapoor IG % 0.2 % Normal 0.0-0.5 [facility] Comment on above: Performed By: #### C BC #### [facility] [address] [place] [address] Dr. Farideh Kapoor LYMPH # 1.2 103/ul Normal 1.2-3.8 [facility] Comment on above: Performed By: #### C BC #### [facility] [address] [place] [address] Dr. Farideh Kapoor Lymphocytes/100 WBC (Bld) 13.0 % Critically low 20.5-60.0 [facility] Comment on above: Performed By: #### C BC #### [facility] [address] [place] [address] Dr. Farideh Kapoor MANUAL DIFF REQ NO Normal [facility] Comment on above: Performed By: #### C BC #### [facility] [address] [place] [address] Dr. Farideh Kapoor MCH (RBC) [Entitic mass] 31.4 pg Normal 26.7-34.0 [facility] Comment on above: Performed By: #### C BC #### [facility] [address] [place] [address] Dr. Farideh Kapoor MCHC (RBC) [Mass/Vol] 34.8 g/dL Normal 29.9-35.2 [facility] Comment on above: Performed By: #### C BC #### [facility] [address] [place] [address] Dr. Farideh Kapoor MCV (RBC) [Entitic vol] 90.3 fL Normal 81.0-99.0 [facility] Comment on above: Performed By: #### C BC #### [facility] [address] [place] [address] Dr. Farideh Kapoor MONO # 0.6 103/ul Normal 0.3-0.8 [facility] Comment on above: Performed By: #### C BC #### [facility] [address] [place] [address] Dr. Farideh Kapoor Monocytes/100 WBC (Bld) 7.0 % Normal 1.7-12.0 [facility] Comment on above: Performed By: #### C BC #### [facility] [address] [place] [address] Dr. Farideh Kapoor NEUT # 7.0 103/ul Critically high 1.4-6.5 [facility] Comment on above: Performed By: #### C BC #### [facility] [address] [place] [address] Dr. Farideh Kapoor Neutrophils/100 WBC (Bld) 78.6 % Critically high 43.0-75.0 [facility] Comment on above: Performed By: #### C BC #### [facility] [address] [place] [address] Dr. Farideh Kapoor Platelet mean volume (Bld) [Entitic vol] 9.4 fL Critically low 9.5-13.5 [facility] Comment on above: Performed By: #### C BC #### [facility] [address] [place] [address] Dr. Farideh Kapoor PLT 213 103/ul Normal 150-450 [facility] Comment on above: Performed By: #### C BC #### [facility] [address] [place] [address] Dr. Farideh Kapoor RBC 3.82 106/ul Critically low 4.20-5.40 [facility] Comment on above: Performed By: #### C BC #### [facility] [address] [place] [address] Dr. Farideh Kapoor WBC 8.9 103/ul Normal 4.0-11.0 [facility] Comment on above: Performed By: #### C BC #### [facility] [address] [place] [address] Dr. Farideh Kapoor Covid-19 PCR ([facility])on 09-20 SARS-CoV-2 (COVID-19) RNA TOMAS+probe Ql (Unsp spec) Not detected Normal NOT DETECTED [facility] Comment on above: Result Comment: When diagnostic testing is negative, the possibility of a false negative should be considered in the context of a patient's recent exposures and the presence of clinical signs and symptoms consistent with SARS-CoV-2. This test is not yet approved or cleared by the [place] FDA. When there are no FDA-approved or cleared tests available, and other criteria are met, FDA can make tests available under an emergency access mechanism called an Emergency Use Authorization (EUA). The EUA for this test is supported by the [employer] of Health and Human Service's declaration that circumstances exist to justify the emergency use of in vitro diagnostics for the detection and/or diagnosis of the virus that causes COVID-19. This EUA will remain in effect for the duration of the COVID-19 declaration justifying emergency of IVDs, unless it is terminated or revoked by the FDA (after which the test may no longer be used). Performed By: #### C VDTBH #### [facility] [address] [place] [address] Dr. Farideh Kapoor DRUG SCREEN RAPID (URINE)on 10-09-2021 AMP Negative Normal NEGATIVE [facility] Comment on above: Performed By: #### C BC #### [facility] [address] [place] [address] Dr. Farideh Kapoor BAR Negative Normal NEGATIVE [facility] Comment on above: Performed By: #### C BC #### [facility] [address] [place] [address] Dr. Farideh Kapoor BUP Negative Normal NEGATIVE [facility] Comment on above: Performed By: #### C BC #### [facility] [address] [place] [address] Dr. Farideh Kapoor BZO Negative Normal NEGATIVE [facility] Comment on above: Performed By: #### C BC #### [facility] [address] [place] [address] Dr. Farideh Kapoor HERNESTO Negative Normal NEGATIVE [facility] Comment on above: Performed By: #### C BC #### [facility] [address] [place] [address] Dr. Farideh Kapoor CUT-OFFS SEE BELOW Normal [facility] Comment on above: Result Comment: AMP (Amphetamine): 500ng/mL, BAR (Barbituates): 200 ng/mL, BZO (Benzodiazepines): 150 ng/mL, BUP (Buprenorphine): 10 ng/mL, HERNESTO (Cocaine): 150 ng/mL, mAMP (Methamphetamine): 500 ng/mL, MTD (Methadone): 200 ng/mL, OPI (Opiates): 100 ng/mL, OXY (Oxycodone): 100 ng/mL, PCP (Phencyclidine): 25 ng/mL, PPX (Propoxyphene): 300 ng/mL, THC (Cannabinoids): 50 ng/mL, TCA (Trycyclic Antidepressants): 300 ng/mL Performed By: #### C BC #### [facility] [address] [place] [address] Dr. Farideh Kapoor DRUG CUT HEADER DRUG CLASS TEST SYST EM CUT-OFF CONCENTRATIONS ARE FOLLOWS: Normal [facility] Comment on above: Performed By: #### C BC #### [facility] [address] [place] [address] Dr. Farideh Kapoor mAMP Negative Normal NEGATIVE [facility] Comment on above: Performed By: #### C BC #### [facility] [address] [place] [address] Dr. Farideh Kapoor MTD Negative Normal NEGATIVE [facility] Comment on above: Performed By: #### C BC #### [facility] [address] [place] [address] Dr. Farideh Kapoor OPI Negative Normal NEGATIVE [facility] Comment on above: Performed By: #### C BC #### [facility] [address] [place] [address] Dr. Farideh Kapoor OXY Negative Normal NEGATIVE [facility] Comment on above: Performed By: #### C BC #### [facility] [address] [place] [address] Dr. Farideh Kapoor PCP Negative Normal NEGATIVE [facility] Comment on above: Performed By: #### C BC #### [facility] [address] [place] [address] Dr. Farideh Kapoor PPX Negative Normal NEGATIVE [facility] Comment on above: Performed By: #### C BC #### [facility] [address] [address] [address] Farideh Kapoor TCA Negative Normal NEGATIVE [facility] Comment on above: Performed By: #### C BC #### [facility] [address] [address] [address] Farideh Kapoor THC Negative Normal NEGATIVE [facility] Comment on above: Performed By: #### C BC #### [facility] [address] [address] [address] Farideh Kapoor TYPE AND SCREENon 10-09-2021 TYPE AND SCREEN Negative Normal [facility] Comment on above: Performed By: #### [id number] #### [facility] [address] [address] [address] Farideh Kapoor GROUP B STREP CULTUREon S. agalactiae Ag Ql (Unsp spec) Culture Observations: NEGATIVE FOR GROUP B STREPTOCOCCUS. Normal [facility] Comment on above: Performed By: #### [id number] #### [facility] [address] [place] [address] Dr. Farideh Kapoor Chlamydia/GC DNA, TPon 02-03 Chlamydia Probe, TP Negative Normal NEG [facility] Comment on above: Result Comment: CHLA MYDIA TRACHOMATIS DNA not detected by nucleic acid amplification. Performed By: #### C YTCGP ####[address] [address] Gonorrhea Probe, TP Negative Normal NEG [facility] Comment on above: Result Comment: NEIS SERIA GONORRHOEAE DNA not detected by nucleic acid amplification.Performed at [address] [address] Performed By: #### C YTCGP ####[address] [address] Cytologyon 01-30-2017 Cytology (NOTE)[id number] Y LABORATORIESCONSULTING PATHOLOGISTS CORPORATIONANATOMIC [id number] [place] [phone] Fax: GYNECOLOGIC CYTOLOGY REPORTPatient Name: CUCO PAGE#: [id number] #[id number]:1: Cervical material, (ThinPrep vial, Imaging-assisted review)Clinical HistoryContraceptive useZ12.4 Encounter for screening for malignant neoplasm of cervixLMP: 01/29/2017INTERPRETATIONCer vical material, (ThinPrep vial, Imaging-assisted review):Specimen Adequacy: Unsatisfactory for evaluation.Specimen processed and examined but unsatisfactory for evaluation of epithelial abnormality due to: - Insufficient epithelial cell component, predominantly blood.Descriptive Diagnosis: Interpretation not possible due to unsatisfactory specimenadequacy. Smash Fixer: JERAD Montano(ASCP)Electronically Signed Out/02/07/[address] [facility] Chlamydia/GC,DNA Ampon 12-30 Chlamydia Probe POSITIVE: CHLAMYDIA TRACHOMATIS DNA detected by nucleic acid amplification. Abnormal NEG [facility] Comment on above: Performed By: #### S WCGP ####[address] [address] Gonorrhea Probe Negative Normal NEG [facility] Comment on above: Result Comment: NEIS SERIA GONORRHOEAE DNA not detected by nucleic acid amplification.Results reported to the [facility] per [place] Admin Code 3701 3 02 and 3701 3 12Performed at [address] [address] Performed By: #### S WCGP ####[address] [address] Cult,Urine,CCon 12-28-2016 Cult,Urine,CC Specimen Description .URINE Performed at [address] [place] [address] ([phone] Special Requests .CLEAN CATCH URINE Performed at [address] [place] [address] Culture ESCHERICHIA COLI >[id number] CFU/ML Performed at [address] [address] Report Status FINAL 12/28/2016SUSCEPTIBILITYOrg anism ECMethod MICAmikacin NOT REPORTEDAmpicillin >=32 RESISTANTAmpicillin/Sulbact am NOT REPORTEDAztreonam <=1 SUSCEPTIBLECefazolin <=4 SUSCEPTIBLE Cefazolin sensitivity results can be used to predict the effectiveness of oral cephalosporins (eg. Cephalexin) in uncomplicated Urinary Tract Infections due to E. coli, K. pneumoniae, and P. mirabilis Cefepime NOT REPORTEDCeftriaxone <=1 SUSCEPTIBLECiprofloxacin <=0.25 SUSCEPTIBLEErtapenem NOT REPORTEDESBL NEGATIVEGentamicin <=1 SUSCEPTIBLEMeropenem NOT REPORTEDNitrofurantoin <=16 SUSCEPTIBLETigecycline NOT REPORTEDTobramycin <=1 SUSCEPTIBLETrimethoprim/Sul fa <=20 SUSCEPTIBLEPiperacillin/Ish obactam <=4 SUSCEPTIBLE [facility] Comment on above: Performed By: #### C ANN ####[address] [phone] , [place] [id number] Vaginitis DNA Probeon 2016 Vaginitis DNA Probe Specimen Description .VAGINA Performed at [address] [place], [place] [id number] ([phone] Special Requests NOT REPORTEDDirect Exam POSITIVE for Margarita sp. NEGATIVE for Gardnerella vaginalis NEGATIVE for Trichomonas vaginalis Method of testing is a DNA probe intended for detection and identification of Margarita species, Gardnerella vaginalis, and Trichomonas vaginalis nucleic acid in vaginal fluid specimens from patients with symptoms of vaginitis/vaginosis. Performed at [address] [address] Report Status FINAL 12/27/2016 [facility] Comment on above: Performed By: #### V AGDNA ####[address] [phone] [place] [address] Vital Signs Date Time Vital Sign Value Performing Clinician Wander méndez 08-09-2022 04:06-0400 Body weight 67.[address] KELBY CHAVEZ . [facility] Comment on above: Performed By: #### [id number] #### [facility] [address] [address] [address] Farideh Kapoor Encounters Encounter Date Encounter Type Care Provider Facility Start: 09-25-2023 End: 09-25-2023 ambulatory KELBY CHAVEZ Not Available Start: 08-26-2023 End: 08-26-2023 ambulatory KELBY CHAVEZ Not Available Start: 08-05-2023 End: 08-05-2023 ambulatory KELBY CHAVEZ Not Available Start: 08-19-2022 End: 08-20-[address] KELBY CHAVEZ . Facility[facility] Start: 08-06-2022 End: 08-07-[address] KELBY CHAVEZ . Facility[facility] Start: 07-12-2022 End: 07-13-[address] KELBY CHAVEZ . Facility[facility] Start: 07-02-2022 End: 07-02-[address] KELBY CHAVEZ . Facility:[facility] Start: 10-15-2021 End: 10-15-[address] KELBY CHAVEZ . Facility[facility] Start: 10-09-2021 End: 10-11-2021 Evaluation and management of inpatient DR KELBY CHAVEZ . Facility:[facility] Start: 09-21-2021 End: 09-21-[address] NASRA WHARTON . Facility: Start: 01-30-2017 End: 01-31-2017 Ambulatory [facility] Start: 12-26-2016 End: 12-27-2016 [facility] Procedures Date Procedure Procedure Detail Performing Clinician Start: 10-09-2021 Delivery of Products of Conception, External Approach DR KELBY CHAVEZ . Start: 10-09-2021 Repair Perineum Skin , External Approach DR KELBY CHAVEZ . Start: 01-30-2017 C.TRACHOMATIS N.GONO RRHOEAE DNA, THIN PREP KRYSTINA SEGURA Start: 01-30-2017 Cytopathology proced ure, preparation of smear, genital source KRYSTINA SEGURA Start: 12-26-2016 C.TRACHOMATIS N.GONO RRHOEAE DNA KRYSTINA SEGURA Start: 12-26-2016 VAGINITIS DNA PROBE EMMANUEL SEGURA Start: 12-26-2016 URINE CULTURE CLEAN CATCH KRYSTINA SEGURA Payers Date Payer Category Payer Unknown [id number] 1995 Unknown [id number] 2.16.84 [id number] 1995 Unknown [id number] 2.16.84 [id number] 1995 Unknown [id number] 2.16.84 [id number] 1995 Unknown [id number] 2.16.84 [id number] 1995 Unknown [id number] 2.16.84 [id number] 1995 Unknown [id number] 2.16.84 [id number] 1995 Unknown [id number] 2.16.84 [id number] 1995 Unknown [id number] 2.16.84 [id number] 1995 Unknown [id number] 2.16.84 [id number] 1995 Unknown [id number] 2.16.84 [id number] 1959 Unknown [id number] 1959 Unknown [id number] Summary Purpose Family History No Family History Records FoundNo Family History Records FoundNo Family History Records Found Advance Directives No Advanced Directives Records FoundNo Advanced Directives Records FoundNo Advanced Directives Records Found Additional Source Comments INFORMATION SOURCE (unrecogn ized section and content) DATE CREATED AUTHOR 10/14/2017 [facility] DATE CREATED AUTHOR AUTHOR'S ORGANIZ ATION 08/23/2022 [facility] DATE CREATED AUTHOR AUTHOR'S ORGANIZ ATION 09/26/2023 [facility] EPIC FOR RECORDS PERTAINING TO PATIENTS WHO ARE OR HAVE BEEN ENROLLED IN A CHEMICAL DEPENDENCY/SUBSTANCEABUSE PROGRAM, SOME INFORMATION MAY BE OMITTED. This clinical summary was aggregated from multiple sources. Caution should be exercised in using it in the provision of clinical care. This summary normalizes information from multiple sources, and as a consequence, information in this document may materially change the coding, format and clinical context of patient data. In addition, data may be omitted in some cases. CLINICAL DECISIONS SHOULD BE BASED ON THE PRIMARY CLINICAL RECORDS. [facility] [employer] [facility]. provides no warranty or guarantee of the accuracy or completeness of information in this document.
== END 2023-10-17 08:51 | disposition home or self-care (01) ==
PROVIDERS: PCP Family Medicine; Visit Provider Obstetrics & Gynecology
DX: Z01.818 Encounter for other preprocedural examination (principal); R87.613 High grade squamous intraepithelial lesion on cytologic smear of cervix (HGSIL)

== ENCOUNTER 2023-10-24 06:07 | Day surgery (SDC) | payer OTHER, SELFPAY ==
[2023-10-17 09:23] VITALS: BP 112/72; PULSE 70; TEMP 36.3; O2SAT 99; BMI 23.1
[2023-10-24] VITALS (10 sets, daily range): BP systolic 91–117; BP diastolic 61–83; PULSE 52–76; TEMP 36.1–36.4; O2SAT 99–100; BMI 23.4
--- OUTSIDE RECORDS SUMMARY | 2023-10-24 06:10 | XMS_ITS | CCD ---
Author Organization [facility] Care Team Providers Care Elevator Erector Name Role Phone KRYSTINA SEGURA Unavailable Unavailable [...] MIRANDA ROPER Date: 2022-08-21 07:30 Normal [facility] AFP MATERNAL FOR SPINA BIFID Aon 08-09-2022 AFP MoM 1.14 Normal [facility] Comment on above: Performed By: #### [id number] #### [facility] [address] [address] [address] Farideh Kapoor AFP Value 73.2 ng/mL Normal [facility] Comment on above: Performed By: #### 4 [id number] #### [facility] [address] [address] [address] Farideh Kapoor AFP, Serum for Spina Bifida Report Normal [facility] Comment on above: Performed By: #### 4 [id number] #### [facility] [address] [place] [address] Dr. Farideh Kapoor Comment Comment Normal [facility] Comment on above: Result Comment: Reena Finn, Ph.D., [facility] Director . References: Available Upon Request. . Multiples Of Median Cutoffs For AFP Elevations [place] 2.5 Black 2.8 IDD 2.0 Twins 4.5 Abbreviation Definitions IDD - Insulin Dep Diabetes OSBR - Open Spina Bifida Risk . For further inquiries contact [facility] at [phone]. . This test was developed and its performance characteristics determined by [employer]. It has not been cleared or approved by the Food and Drug Administration. Performed By: #### 4 [id number] #### [facility] [address] [place] [address] Dr. Farideh Kapoor Gest Age Collection Date 20.7 weeks Normal [facility] Comment on above: Performed By: #### 4 [id number] #### [facility] [address] [place] [address] Dr. Farideh Kapoor Gestat, Age Based on Ultrasound Normal [facility] Comment on above: Result Comment: 17.1 on 07/12/2022 Recalculations are not recommended when gestational dating by LMP and ultrasound are within 10 days. Performed By: #### 4 [id number] #### [facility] [address] [place] [address] Dr. Farideh Kapoor Insulin Dep Diabetes No Normal [facility] Comment on above: Performed By: #### 4 [id number] #### [facility] [address] [place] [address] Dr. Farideh Kapoor Interpretation Comment Normal [facility] Comment on above: Result Comment: Inte [...] Customer Services to discuss available options. The [employer] recommends amniocentesis be offered to women age 35 and older. Performed By: #### 4 [id number] #### [facility] [address] [place] [address] Dr. Farideh Kapoor [age] Normal [facility] Comment on above: Performed By: #### 4 [id number] #### [facility] [address] [place] [address] Dr. Farideh Kapoor Multiple Gestation No Normal [facility] Comment on above: Performed By: #### 4 [id number] #### [facility] [address] [place] [address] Dr. Farideh Kapoor OSBR Risk 1 [place] [address] [facility] Comment on above: Performed By: #### 4 [id number] #### [facility] [address] [place] [address] Dr. Farideh Kapoor PDF . Normal [facility] Comment on above: Performed By: #### 4 [id number] #### [facility] [address] [place] [address] Dr. Farideh Kapoor Race Normal [facility] Comment on above: Performed By: #### 4 [id number] #### [facility] [address] [place] [address] Dr. Farideh Kapoor Test Results: Negative [facility] Comment on above: Performed By: #### 4 [id number] #### [facility] [address] [place] [address] Dr. Farideh Kapoor HEP B SURFACE ANTIGEN SCREEN on 08-08-2022 HBsAg Screen Negative Normal Negative [facility] Comment on above: Performed By: #### H BSANS #### [facility] [address] [place] [address] Dr. Farideh Kapoor HEPATITIS C VIRUS AB W/ REFL EX QUANTon 08-08-2022 HCV AB Non-Reactive Normal Non Reactive [facility] Comment on above: Performed By: #### H CVPCRR #### [facility] [address] [place] [address] Dr. Farideh Kapoor Interpretation: Comment Normal [facility] Comment on above: Result Comment: Not infected with HCV unless early or acute infection is suspected (which may be delayed in an immunocompromised individual), or other evidence exists to indicate HCV infection. Performed By: #### H CVPCRR #### [facility] [address] [place] [address] Dr. Farideh Kapoor HIV 1 AND 2 WITH REFLEXon HIV Screen 4th Generation wRfx Non-Reactive Normal Non Reactive [facility] Comment on above: Result Comment: HIV Negative HIV-1/HIV-2 antibodies and HIV-1 p24 antigen were NOT detected. There is no laboratory evidence of HIV infection. Performed By: #### C BC #### [facility] [address] [place] [address] Dr. Farideh Kapoor RPR QUANTon 08-08-2022 Rapid Plasma Reagin, Quant Non-Reactive Normal NonRea<1:1 [facility] Comment on above: Result Comment: Plea se Note: This test does not meet current guidelines for screening and diagnosis of syphilis. This test is intended for following treatment response in patients being treated for syphilis infection. To screen for syphilis infection, a reflex cascade that includes both RPR and a treponema-specific assay should be utilized, such as Treponema pallidum (Syphilis) Screening [place] (684650) or Rapid Plasma Reagin (RPR) Test With Reflex to Quantitative RPR and Confirmatory Treponema pallidum Antibodies (014002). Performed By: #### 4 [id number] #### [facility] [address] [place] [address] Dr. Farideh Kapoor RUBELLA AB IGGon 08-08-2022 Rubella Antibodies, IgG <0.90 Critically low Immune >0.99 [facility] Comment on above: Result Comment: Non- immune <0.90 Equivocal 0.90 - 0.99 Immune >0.99 Performed By: #### 4 [id number] #### [facility] [address] [place] [address] Dr. Farideh Kapoor CBC AUTO DIFFon 08-06-2022 BASO # 0.0 103/ul Normal 0.0-0.1 [facility] Comment on above: Performed By: #### 4 [id number] #### [facility] [address] [place] [address] Dr. Farideh Kapoor Basophils/100 WBC (Bld) 0.2 % Normal 0.2-2.0 [facility] Comment on above: Performed By: #### 4 [id number] #### [facility] [address] [place] [address] Dr. Farideh Kapoor EO # 0.1 103/ul Normal 0.0-0.7 [facility] Comment on above: Performed By: #### 4 [id number] #### [facility] [address] [place] [address] Dr. Farideh Kapoor Eosinophils/100 WBC (Bld) 0.7 % Critically low 0.9-7.0 [facility] Comment on above: Performed By: #### 4 [id number] #### [facility] [address] [place] [address] Dr. Farideh Kapoor Erythrocyte distribution width (RBC) [Ratio] 13.2 % Normal 11.0-15.0 [facility] Comment on above: Performed By: #### 4 [id number] #### [facility] [address] [place] [address] Dr. Farideh Kapoor Hematocrit (Bld) [Volume fraction] 35.1 % Critically low 36.0-48.0 [facility] Comment on above: Performed By: #### 4 [id number] #### [facility] [address] [place] [address] Dr. Farideh Kapoor Hemoglobin (Bld) [Mass/Vol] 12.1 g/dL Normal 12.0-16.0 [facility] Comment on above: Performed By: #### 4 [id number] #### [facility] [address] [place] [address] Dr. Farideh Kapoor IG # 0.03 10e3/ul Normal 0.00-0.03 [facility] Comment on above: Performed By: #### 4 [id number] #### [facility] [address] [place] [address] Dr. Farideh Kapoor IG % 0.3 % Normal 0.0-0.5 [facility] Comment on above: Performed By: #### 4 [id number] #### [facility] [address] [place] [address] Dr. Farideh Kapoor LYMPH # 1.0 103/ul Critically low 1.2-3.8 [facility] Comment on above: Performed By: #### 4 [id number] #### [facility] [address] [place] [address] Dr. Farideh Kapoor Lymphocytes/100 WBC (Bld) 11.1 % Critically low 20.5-60.0 [facility] Comment on above: Performed By: #### 4 [id number] #### [facility] [address] [place] [address] Dr. Farideh Kapoor MANUAL DIFF REQ NO Normal [facility] Comment on above: Performed By: #### 4 [id number] #### [facility] [address] [place] [address] Dr. Farideh Kapoor MCH (RBC) [Entitic mass] 31.0 pg Normal 26.7-34.0 [facility] Comment on above: Performed By: #### 4 [id number] #### [facility] [address] [place] [address] Dr. Farideh Kapoor MCHC (RBC) [Mass/Vol] 34.5 g/dL Normal 29.9-35.2 [facility] Comment on above: Performed By: #### 4 [id number] #### [facility] [address] [place] [address] Dr. Farideh Kapoor MCV (RBC) [Entitic vol] 90.0 fL Normal 81.0-99.0 [facility] Comment on above: Performed By: #### 4 [id number] #### [facility] [address] [place] [address] Dr. Farideh Kapoor MONO # 0.4 103/ul Normal 0.3-0.8 [facility] Comment on above: Performed By: #### 4 [id number] #### [facility] [address] [place] [address] Dr. Farideh Kapoor Monocytes/100 WBC (Bld) 4.6 % Normal 1.7-12.0 [facility] Comment on above: Performed By: #### 4 [id number] #### [facility] [address] [address] [address] Farideh Kapoor NEUT # 7.4 103/ul Critically high 1.4-6.5 [facility] Comment on above: Performed By: #### 4 [id number] #### [facility] [address] [place] [address] Dr. Farideh Kapoor Neutrophils/100 WBC (Bld) 83.1 % Critically high 43.0-75.0 [facility] Comment on above: Performed By: #### 4 [id number] #### [facility] [address] [place] [address] Dr. Farideh Kapoor Platelet mean volume (Bld) [Entitic vol] 9.0 fL Critically low 9.5-13.5 [facility] Comment on above: Performed By: #### 4 [id number] #### [facility] [address] [place] [address] Dr. Farideh Kapoor PLT 257 103/ul Normal 150-450 [facility] Comment on above: Performed By: #### 4 [id number] #### [facility] [address] [place] [address] Dr. Farideh Kapoor RBC 3.90 106/ul Critically low 4.20-5.40 [facility] Comment on above: Performed By: #### 4 [id number] #### [facility] [address] [place] [address] Dr. Farideh Kapoor WBC 8.9 103/ul Normal 4.0-11.0 [facility] Comment on above: Performed By: #### 4 [id number] #### [facility] [address] [place] [address] Dr. Farideh Kapoor CULTURE URINEon 08-06-2022 CULTURE URINE Culture Observations : NO GROWTH. Normal [facility] Comment on above: Performed By: #### U RCX #### [facility] [address] [place] [address] Dr. Farideh Kapoor GLYCOHEMOGLOBIN A1Con 2022 ADA RECOMMENDATION SEE BELOW Normal [facility] Comment on above: Result Comment: ADA RECOMMENDED LIMIT 4.0 - 6.0 ADA THERAPEUTIC TARGET < 7.0 ACTION SUGGESTED > 7.0 Performed By: #### C BC #### [facility] [address] [place] [address] Dr. Farideh Kapoor Glucose [Mass/Vol] 74 mg/dL Normal [facility] Comment on above: Performed By: #### C BC #### [facility] [address] [place] [address] Dr. Farideh Kapoor HbA1c (Bld) [Mass fraction] 4.2 % Critically low 4.5-6.2 [facility] Comment on above: Performed By: #### C BC #### [facility] [address] [place] [address] Dr. Farideh Kapoor TSHon 08-06-2022 TSH 1.522 uIU/mL Normal 0.358-3.740 [facility] Comment on above: Performed By: #### T SH #### [facility] [address] [place] [address] Dr. Farideh Kapoor TYPE AND SCREENon 08-06-2022 TYPE AND SCREEN Negative Normal [facility] Comment on above: Performed By: #### T NS #### [facility] [address] [place] [address] Dr. Farideh Kapoor US PREG DATING >14WEEKSon [...] by: LOU ZENGSAMANMARGARITA Date: 2022-07-12 10:40 Normal [facility] PAP ACOG PANEL 2: 21 to 29on 07-11-2022 . . Normal [facility] Comment on above: Performed By: #### 4 [id number] #### [facility] [address] [place] [address] Dr. Farideh Kapoor Age Gdln ACOG Testing - Normal [facility] Comment on above: Performed By: #### 4 [id number] #### [facility] [address] [place] [address] Dr. Farideh Kapoor DIAGNOSIS: Comment Abnormal [facility] Comment on above: Result Comment: EPIT HELIAL CELL ABNORMALITY. LOW GRADE SQUAMOUS INTRAEPITHELIAL LESION (LSIL). Performed By: #### 4 [id number] #### [facility] [address] [place] [address] Dr. Farideh Kapoor Electronically signed by: Comment Normal [facility] Comment on above: Result Comment: Flavia Graham MD, Pathologist Performed By: #### 4 [id number] #### [facility] [address] [place] [address] Dr. Farideh Kapoor Methodology: Comment [facility] Comment on above: Result Comment: This liquid based ThinPrep(R) pap test was screened with the use of an image guided system. Performed By: #### 4 [id number] #### [facility] [address] [place] [address] Dr. Farideh Kapoor Note: Comment Normal [facility] Comment on above: Result Comment: The Pap smear is a screening test designed to aid in the detection of premalignant and malignant conditions of the uterine cervix. It is not a diagnostic procedure and should not be used as the sole means of detecting cervical cancer. Both false-positive and false-negative reports do occur. . Performed By: #### 4 [id number] #### [facility] [address] [place] [address] Dr. Farideh Kapoor Pathologist Provided ICD10 Comment Normal [facility] Comment on above: Result Comment: [id number]. [id number] Performed By: #### 4 [id number] #### [facility] [address] [place] [address] Dr. Farideh Kapoor Performed by: Comment Normal [facility] Comment on above: Result Comment: Anabell Ferraro, Conductor/Engineer Performed By: #### 4 [id number] #### [facility] [address] [address] [address] Farideh Kapoor Recommendation: Comment Abnormal [facility] Comment on above: Result Comment: Sugg est follow up as clinically appropriate. Performed By: #### 4 [id number] #### [facility] [address] [place] [address] Dr. Farideh Kapoor Reflex Criteria: Comment Normal [facility] Comment on above: Result Comment: The HPV DNA reflex criteria were not met with this specimen result therefore, no HPV testing was performed. . Performed By: #### 4 [id number] #### [facility] [address] [place] [address] Dr. Farideh Kapoor Specimen adequacy: Comment Normal [facility] Comment on above: Result Comment: Sati sfactory for evaluation. Endocervical and/or squamous metaplastic cells (endocervical component) are present. Performed By: #### 4 [id number] #### [facility] [address] [place] [address] Dr. Farideh Kapoor CHLAMYDIA/GONOCOCCUS TOMAS (SW AB/URINE/PAPon 07-05-2022 Chlamydia trachomatis, TOMAS Negative Normal Negative [facility] Comment on above: Performed By: #### C T/NGNA #### [facility] [address] [place] [address] Dr. Farideh Kapoor Neisseria gonorrhoeae, TOMAS Negative Normal Negative [facility] Comment on above: Performed By: #### C T/NGNA #### [facility] [address] [place] [address] Dr. Farideh Kapoor VAGINITIS/VAGINOSIS DNA PROB Arnel 07-04-2022 Margarita species Negative Normal Negative [facility] Comment on above: Performed By: #### 4 [id number] #### [facility] [address] [place] [address] Dr. Farideh Kapoor Gardnerella vaginalis Positive Abnormal Negative [facility] Comment on above: Performed By: #### 4 [id number] #### [facility] [address] [address] [address] Farideh Kapoor Trichomonas vaginalis Negative Normal Negative [facility] Comment on above: Performed By: #### 4 [id number] #### [facility] [address] [place] [address] Dr. Farideh Kapoor CBC AUTO DIFFon 10-10-2021 BASO # 0.0 103/ul Normal 0.0-0.1 [facility] Comment on above: Performed By: #### C BC #### [facility] [address] [place] [address] Dr. Farideh Kapoor Basophils/100 WBC (Bld) 0.2 % Normal 0.2-2.0 [facility] Comment on above: Performed By: #### C BC #### [facility] [address] [place] [address] Dr. Farideh Kapoor EO # 0.1 103/ul Normal 0.0-0.7 [facility] Comment on above: Performed By: #### C BC #### [facility] [address] [place] [address] Dr. Farideh Kapoor Eosinophils/100 WBC (Bld) 0.9 % Normal 0.9-7.0 [facility] Comment on above: Performed By: #### C BC #### [facility] [address] [place] [address] Dr. Farideh Kapoor Erythrocyte distribution width (RBC) [Ratio] 12.7 % Normal 11.0-15.0 [facility] Comment on above: Performed By: #### C BC #### [facility] [address] [place] [address] Dr. Farideh Kapoor Hematocrit (Bld) [Volume fraction] 31.9 % Critically low 36.0-48.0 [facility] Comment on above: Performed By: #### C BC #### [facility] [address] [place] [address] Dr. Farideh Kapoor Hemoglobin (Bld) [Mass/Vol] 11.2 g/dL Critically low 12.0-16.0 [facility] Comment on above: Performed By: #### C BC #### [facility] [address] [place] [address] Dr. Farideh Kapoor IG # 0.05 10e3/ul Critically high 0.00-0.03 [facility] Comment on above: Performed By: #### C BC #### [facility] [address] [place] [address] Dr. Farideh Kapoor IG % 0.4 % Normal 0.0-0.5 [facility] Comment on above: Performed By: #### C BC #### [facility] [address] [place] [address] Dr. Farideh Kapoor LYMPH # 1.3 103/ul Normal 1.2-3.8 [facility] Comment on above: Performed By: #### C BC #### [facility] [address] [place] [address] Dr. Farideh Kapoor Lymphocytes/100 WBC (Bld) 10.5 % Critically low 20.5-60.0 [facility] Comment on above: Performed By: #### C BC #### [facility] [address] [place] [address] Dr. Farideh Kapoor MANUAL DIFF REQ NO Normal [facility] Comment on above: Performed By: #### C BC #### [facility] [address] [place] [address] Dr. Farideh Kapoor MCH (RBC) [Entitic mass] 31.8 pg Normal 26.7-34.0 [facility] Comment on above: Performed By: #### C BC #### [facility] [address] [place] [address] Dr. Farideh Kapoor MCHC (RBC) [Mass/Vol] 35.1 g/dL Normal 29.9-35.2 [facility] Comment on above: Performed By: #### C BC #### [facility] [address] [place] [address] Dr. Farideh Kapoor MCV (RBC) [Entitic vol] 90.6 fL Normal 81.0-99.0 [facility] Comment on above: Performed By: #### C BC #### [facility] [address] [address] [address] Farideh Kapoor MONO # 1.2 103/ul Critically high 0.3-0.8 [facility] Comment on above: Performed By: #### C BC #### [facility] [address] [address] [address] Farideh Kapoor Monocytes/100 WBC (Bld) 9.4 % Normal 1.7-12.0 [facility] Comment on above: Performed By: #### C BC #### [facility] [address] [address] [address] Farideh Kapoor NEUT # 9.6 103/ul Critically high 1.4-6.5 [facility] Comment on above: Performed By: #### C BC #### [facility] [address] [place] [address] Dr. Farideh Kapoor Neutrophils/100 WBC (Bld) 78.6 % Critically high 43.0-75.0 [facility] Comment on above: Performed By: #### C BC #### [facility] [address] [address] [address] Farideh Kapoor Platelet mean volume (Bld) [Entitic vol] 9.2 fL Critically low 9.5-13.5 [facility] Comment on above: Performed By: #### C BC #### [facility] [address] [address] [address] Farideh Kapoor PLT 177 103/ul Normal 150-450 [facility] Comment on above: Performed By: #### C BC #### [facility] [address] [address] [address] Farideh Kapoor RBC 3.52 106/ul Critically low 4.20-5.40 [facility] Comment on above: Performed By: #### C BC #### [facility] [address] [address] [address] Farideh Kapoor WBC 12.3 103/ul Critically high 4.0-11.0 [facility] Comment on above: Performed By: #### C BC #### [facility] [address] [place] [address] Dr. Farideh Kapoor CBC AUTO DIFFon 10-09-2021 BASO # 0.0 103/ul Normal 0.0-0.1 [facility] Comment on above: Performed By: #### C BC #### [facility] [address] [place] [address] Dr. Farideh Kapoor Basophils/100 WBC (Bld) 0.1 % Critically low 0.2-2.0 [facility] Comment on above: Performed By: #### C BC #### [facility] [address] [place] [address] Dr. Farideh Kapoor EO # 0.1 103/ul Normal 0.0-0.7 [facility] Comment on above: Performed By: #### C BC #### [facility] [address] [place] [address] Dr. Farideh Kapoor Eosinophils/100 WBC (Bld) 1.1 % Normal 0.9-7.0 [facility] Comment on above: Performed By: #### C BC #### [facility] [address] [place] [address] Dr. Fraideh Kapoor Erythrocyte distribution width (RBC) [Ratio] 12.7 % Normal 11.0-15.0 [facility] Comment on above: Performed By: #### C BC #### [facility] [address] [place] [address] Dr. Farideh Kapoor Hematocrit (Bld) [Volume fraction] 34.5 % Critically low 36.0-48.0 [facility] Comment on above: Performed By: #### C BC #### [facility] [address] [place] [address] Dr. Farideh Kapoor Hemoglobin (Bld) [Mass/Vol] 12.0 g/dL Normal 12.0-16.0 [facility] Comment on above: Performed By: #### C BC #### [facility] [address] [place] [address] Dr. Farideh Kapoor IG # 0.02 10e3/ul Normal 0.00-0.03 [facility] Comment on above: Performed By: #### C BC #### [facility] [address] [place] [address] Dr. Farideh Kapoor IG % 0.2 % Normal 0.0-0.5 [facility] Comment on above: Performed By: #### C BC #### [facility] [address] [place] [address] Dr. Farideh Kapoor LYMPH # 1.2 103/ul Normal 1.2-3.8 [facility] Comment on above: Performed By: #### C BC #### [facility] [address] [place] [address] Dr. Farideh Kapoor Lymphocytes/100 WBC (Bld) 13.0 % Critically low 20.5-60.0 [facility] Comment on above: Performed By: #### C BC #### [facility] [address] [place] [address] Dr. Farideh Kapoor MANUAL DIFF REQ NO Normal [facility] Comment on above: Performed By: #### C BC #### [facility] [address] [place] [address] Dr. Farideh Kapoor MCH (RBC) [Entitic mass] 31.4 pg Normal 26.7-34.0 [facility] Comment on above: Performed By: #### C BC #### [facility] [address] [place] [address] Dr. Farideh Kapoor MCHC (RBC) [Mass/Vol] 34.8 g/dL Normal 29.9-35.2 [facility] Comment on above: Performed By: #### C BC #### [facility] [address] [place] [address] Dr. Farideh Kapoor MCV (RBC) [Entitic vol] 90.3 fL Normal 81.0-99.0 [facility] Comment on above: Performed By: #### C BC #### [facility] [address] [place] [address] Dr. Farideh Kapoor MONO # 0.6 103/ul Normal 0.3-0.8 [facility] Comment on above: Performed By: #### C BC #### [facility] [address] [place] [address] Dr. Farideh Kapoor Monocytes/100 WBC (Bld) 7.0 % Normal 1.7-12.0 [facility] Comment on above: Performed By: #### C BC #### [facility] [address] [place] [address] Dr. Farideh Kapoor NEUT # 7.0 103/ul Critically high 1.4-6.5 [facility] Comment on above: Performed By: #### C BC #### [facility] [address] [place] [address] Dr. Farideh Kapoor Neutrophils/100 WBC (Bld) 78.6 % Critically high 43.0-75.0 [facility] Comment on above: Performed By: #### C BC #### [facility] [address] [place] [address] Dr. Farideh Kapoor Platelet mean volume (Bld) [Entitic vol] 9.4 fL Critically low 9.5-13.5 [facility] Comment on above: Performed By: #### C BC #### [facility] [address] [place] [address] Dr. Farideh Kapoor PLT 213 103/ul Normal 150-450 [facility] Comment on above: Performed By: #### C BC #### [facility] [address] [place] [address] Dr. Farideh Kapoor RBC 3.82 106/ul Critically low 4.20-5.40 [facility] Comment on above: Performed By: #### C BC #### [facility] [address] [place] [address] Dr. Farideh Kapoor WBC 8.9 103/ul Normal 4.0-11.0 [facility] Comment on above: Performed By: #### C BC #### [facility] [address] [place] [address] Dr. Farideh Kapoor Covid-19 PCR ([facility])on 09-20 SARS-CoV-2 (COVID-19) RNA TOMAS+probe Ql (Unsp spec) Not detected Normal NOT DETECTED [facility] Comment on above: Result Comment: When [...] for this test is supported by the Master Autom[employer] Technician of Health and Human Service's declaration that [...] used). Performed By: #### C VDTBH #### [facility] [address] [place] [address] Dr. Farideh Kapoor DRUG SCREEN RAPID (URINE)on 10-09-2021 AMP Negative Normal NEGATIVE [facility] Comment on above: Performed By: #### C BC #### [facility] [address] [place] [address] Dr. Farideh Kapoor BAR Negative Normal NEGATIVE [facility] Comment on above: Performed By: #### C BC #### [facility] [address] [place] [address] Dr. Farideh Kapoor BUP Negative Normal NEGATIVE [facility] Comment on above: Performed By: #### C BC #### [facility] [address] [place] [address] Dr. Farideh Kapoor BZO Negative Normal NEGATIVE [facility] Comment on above: Performed By: #### C BC #### [facility] [address] [place] [address] Dr. Farideh Kapoor HERNESTO Negative Normal NEGATIVE [facility] Comment on above: Performed By: #### C BC #### [facility] [address] [place] [address] Dr. Farideh Kapoor CUT-OFFS SEE BELOW Normal [facility] Comment on above: Result Comment: AMP [...] ng/mL Performed By: #### C BC #### [facility] [address] [place] [address] Dr. Farideh Kapoor DRUG CUT HEADER DRUG CLASS TEST SYST EM CUT-OFF CONCENTRATIONS ARE FOLLOWS: Normal [facility] Comment on above: Performed By: #### C BC #### [facility] [address] [place] [address] Dr. Farideh Kapoor mAMP Negative Normal NEGATIVE [facility] Comment on above: Performed By: #### C BC #### [facility] [address] [place] [address] Dr. Farideh Kapoor MTD Negative Normal NEGATIVE [facility] Comment on above: Performed By: #### C BC #### [facility] [address] [place] [address] Dr. Farideh Kapoor OPI Negative Normal NEGATIVE [facility] Comment on above: Performed By: #### C BC #### [facility] [address] [place] [address] Dr. Farideh Kapoor OXY Negative Normal NEGATIVE [facility] Comment on above: Performed By: #### C BC #### [facility] [address] [place] [address] Dr. Farideh Kapoor PCP Negative Normal NEGATIVE [facility] Comment on above: Performed By: #### C BC #### [facility] [address] [place] [address] Dr. Farideh Kapoor PPX Negative Normal NEGATIVE [facility] Comment on above: Performed By: #### C BC #### [facility] [address] [address] [address] Farideh Kapoor TCA Negative Normal NEGATIVE [facility] Comment on above: Performed By: #### C BC #### [facility] [address] [address] [address] Farideh Kapoor THC Negative Normal NEGATIVE [facility] Comment on above: Performed By: #### C BC #### [facility] [address] [address] [address] Farideh Kapoor TYPE AND SCREENon 10-09-2021 TYPE AND SCREEN Negative Normal [facility] Comment on above: Performed By: #### [id number] #### [facility] [address] [address] [address] Farideh Kapoor GROUP B STREP CULTUREon S. agalactiae Ag Ql (Unsp spec) Culture Observations: NEGATIVE FOR GROUP B STREPTOCOCCUS. Normal [facility] Comment on above: Performed By: #### [id number] #### [facility] [address] [place] [address] Dr. Farideh Kapoor Chlamydia/GC DNA, TPon 02-03 Chlamydia Probe, TP Negative Normal [facility] [place] Comment on above: Result Comment: CHLA MYDIA TRACHOMATIS DNA not detected by nucleic acid amplification. Performed By: #### C YTCGP ####[address] [address] Gonorrhea Probe, TP Negative Normal [facility] [place] Comment on above: Result Comment: NEIS SERIA GONORRHOEAE DNA not detected by nucleic acid amplification.Performed at [address] [address] Performed By: #### C YTCGP ####[address] [address] Cytologyon 01-30-2017 Cytology (NOTE)[id number] LAB[facility]ATORIESCONSULTING PATHOLOGISTS CORPORATIONANATOMIC [id number] [place] [phone] Fax: GYNECOLOGIC CYTOLOGY REPORTPatient Name: CUCO PAGE#: [id number] #[id number]:1: Cervical material, (ThinPrep vial, Imaging-assisted review)Clinical HistoryContraceptive useZ12.4 Encounter for screening for malignant neoplasm of cervixLMP: 01/29/2017INTERPRETATIONCer vical material, (ThinPrep vial, Imaging-assisted review):Specimen Adequacy: Unsatisfactory for evaluation.Specimen processed and examined but unsatisfactory for evaluation of epithelial abnormality due to: - Insufficient epithelial cell component, predominantly blood.Descriptive Diagnosis: Interpretation not possible due to unsatisfactory specimenadequacy. Conductor/Engineer: JERAD Montano(ASCP)Electronically Signed Out/02/07/2017 Normal [place] Chlamydia/GC,DNA Ampon 12-30 Chlamydia Probe POSITIVE: CHLAMYDIA TRACHOMATIS DNA detected by nucleic acid amplification. Abnormal [facility] [place] Comment on above: Performed By: #### S WCGP ####[address] [address] Gonorrhea Probe Negative Normal [facility] [place] Comment on above: Result Comment: NEIS SERIA GONORRHOEAE DNA not detected by nucleic acid amplification.Results reported to the [facility] per [place] Admin Code 3701 3 02 and 3701 3 12Performed at [address] [address] Performed By: #### S WCGP ####[address] [address] Cult,Urine,CCon 12-28-2016 Cult,Urine,CC Specimen Description .URINE Performed at [address] [place] [address] ([phone] Special Requests .CLEAN CATCH URINE Performed at [address] [place] [address] Culture ESCHERICHIA COLI >[id number] CFU/ML Performed at [address] [address] Report Status FINAL 12/28/2016SUSCEPTIBILITYOrg anism ECMethod MICAmikacin [...] SUSCEPTIBLETrimethoprim/Sul fa <=20 SUSCEPTIBLEPiperacillin/Ish obactam <=4 SUSCEPTIBLE [facility] Comment on above: Performed By: #### C ANN ####[address] [phone] , [place] [id number] Vaginitis DNA Probeon 2016 Vaginitis DNA Probe Specimen Description .VAGINA Performed at [address] [place], [place] [address] ([phone] Special Requests NOT REPORTEDDirect Exam POSITIVE for Margarita sp. NEGATIVE for Gardnerella vaginalis NEGATIVE for Trichomonas vaginalis Method of testing is a DNA probe intended for detection and identification of Margarita species, Gardnerella vaginalis, and Trichomonas vaginalis nucleic acid in vaginal fluid specimens from patients with symptoms of vaginitis/vaginosis. Performed at [address] [address] Report Status FINAL 12/27/2016 [facility] Comment on above: Performed By: #### V AGDNA ####[address] [phone] [place] [address] Vital Signs Date Time Vital Sign Value Performing Clinician Wander méndez 08-09-2022 04:06-0400 Body weight 67.[address] KELBY CHAVEZ . [facility] Comment on above: Performed By: #### 4 [id number] #### [facility] [address] [address] [address] Farideh Kapoor Encounters Encounter Date Encounter [...] Start: 01-30-2017 End: 01-31-2017 Ambulatory SEGUN CHARLES [facility] Start: 12-26-2016 End: 12-27-2016 [facility] Procedures Date Procedure Procedure Detail [...] SEGURA Payers Date Payer Category Payer Unknown [id number] 1995 Unknown [id number] 2.16.84 [id number] 1995 Unknown [id number] 2.16.84 [id number] 1995 Unknown [id number] 2.16.84 [id number] 1995 Unknown [id number] 2.16.84 [id number] 1995 Unknown [id number] 2.16.84 [id number] 1995 Unknown [id number] 2.16.84 [id number] 1995 Unknown [id number] 2.16.84 [id number] 1995 Unknown [id number] 2.16.84 0.1.291401.3.579.2.1259 1995 Unknown [id number] 2.16.84 0.1.894816.3.579.2.1259 1995 Unknown [id number] 2.16.84 [id number] 1959 Unknown [id number] 1959 Unknown [id number] Summary Purpose Family History No Family History [...] DATE CREATED AUTHOR AUTHOR'S ORGANIZ ATION 09/26/2023 [facility] EPIC FOR RECORDS PERTAINING TO [...] BE BASED ON THE PRIMARY CLINICAL RECORDS. [facility]. provides no warranty or guarantee of the accuracy or completeness of information in this document.
[2023-10-24 06:18] LABS: Basophils Percent Auto 0.8 % (0.2-2.0); Eosinophils Absolute Auto 0.2 10^3/uL (0.0-0.7); Eosinophils Percent Auto 3.8 % (0.9-7.0); Hematocrit 37.7 % (36.0-48.0); Immature Granulocytes Abs Auto 0.01 10^3/uL (0.00-0.03); Immature Granulocytes Pct Auto 0.2 % (0.0-0.5); Lymphocytes Absolute Auto 1.7 10^3/uL (1.2-3.8); Lymphocytes Percent Auto 34.1 % (20.5-60.0); Mean Corpuscular HGB Conc 34.5 g/dL (29.9-35.2); Mean Corpuscular Hemoglobin 30.9 pg (26.7-34.0); Mean Corpuscular Volume 89.5 fL (81.0-99.0); Mean Platelet Volume 9.6 fL (9.5-13.5); Monocytes Absolute Auto 0.4 10^3/uL (0.3-0.8); Monocytes Percent Auto 7.8 % (1.7-12.0); Neutrophils Absolute Auto 2.7 10^3/uL (1.4-6.5); Neutrophils Percent Auto 53.3 % (43.0-75.0); Platelet Count 225 10^3/uL (150-450); Red Blood Count 4.21 10^6/uL (4.20-5.40); Red Cell Distribution Width 11.9 % (11.0-15.0)
[2023-10-24 06:42] LABS: HCG Quantitative <1 mIU/mL
[2023-10-24] MEDS: LACTATED RINGER'S SOLUTION 1,000 ML 50 ML IV ×2 (06:45→08:12)
[2023-10-24] MEDS: IODINE/POTASSIUM IODIDE 8 ML SOLUTION TOPICAL (07:54)
[2023-10-24] MEDS: FERRIC SUBSULFATE 8 ML SOLUTION TOPICAL (07:54)
--- NOTE | 2023-10-24 08:08 | P.ON_ITS ---
Brief Operative Note Date of procedure: 10/24/23 Pre-op diagnosis general: hgsil, cervical dysplasia Post-op diagnosis: same as pre-op Procedure: NAME OF PROCEDURE: [leep ] PROCEDURE: Patient was taken back to the Operating Room where she was given general anesthesia without difficulty. She was then placed in the dorsal lithotomy position. She was then prepped and draped in the normal sterile fashion. A weighted speculum was placed into the patient's vagina. The anterior lip of the cervix was identified and grasped with a single-tooth tenaculum. The patient's cervix was then copiously irrigated using vinegar.? Then, a Lugol Solution was also placed onto the patient's cervix which demonstrated increased uptake of the Lugol solution at the [?3 ] o?clock and [? 9] o?clock positions.? At that time, the LEEP portion of the procedure was performed, including both the [?3 ] o?clock and [? 9] o?clock positions. The ectocervix was sent out to Pathology. The patient's cervix was then coagulated using suction cautery. Excellent he mostasis was assured.? Monsel Solution was then placed onto the patient's cervix to help maintain adequate hemostasis. All instruments were removed from the patient's vagina. The anterior lip of the cervix demonstrated excellent hemostasis.? The patient tolerated the procedure well. Sponge, lap, and needle counts were correct x 2. The patient was taken to Recovery Room in stable condition. Anesthesia: MAC Surgeon: Kwadwo Sepulveda Tourniquet time (min): 10 Pathology: other (ectocervical tissue) Condition: stable Disposition: PACU Urinary Catheter Management Urinary Catheter Management Urethral: Cath placed during this visit: no
--- NOTE | 2023-10-24 09:59 | PC.NURSE ---
0920: pt ambulates to bathroom with minimal assistance,voids without difficulty.
== END 2023-10-24 09:25 | disposition home or self-care (01) ==
PROVIDERS: PCP Family Medicine; Visit Provider Obstetrics & Gynecology
PROC: (CPT 940; principal; 2023-10-24 07:30)
DX: R87.613 High grade squamous intraepithelial lesion on cytologic smear of cervix (HGSIL) (principal)
CPT/HCPCS: 57522; 36415; 84702; 85025; 88307; J1100; J2250; J2405; J2704; J3010

== ENCOUNTER 2024-02-09 20:13 | Outpatient (REF) | payer OTHER, SELFPAY ==
--- OUTSIDE RECORDS SUMMARY | 2024-02-09 20:16 | XMS_ITS | CCD ---
Author Organization [facility] Care Team Providers Care Supervisor Accounting Clerks Name Role Phone KRYSTINA SEGURA Unavailable Unavailable ADITYA, ROB Unavailable Unavailable MELVIN DELILAH BENNIE Unavailable Unavailabl e ADITYA, ROB Unavailable Unavailable DERICK ., DR LAMA Attending Unavailable REQUEST, DR FAJARDO LISTED Primary Care Unavaila ble DERICK ., DR LAMA Consulting Unavailable DERICK ., DR LAMA Admitting Unavailable DERICK ., DR LAMA Procedure Practitioner Unavail able DERICK ., DR LAMA Attending Unavailable REQUEST, NONE LISTED Primary Care Unavaila ble DERICK ., DR LAMA Admitting Unavailable KARASIK ., DR HAMMONDS Attending Unavailabl e KARASIK ., DR HAMMONDS Consulting Unavailabl e KARASIK ., DR HAMMONDS Admitting Unavailabl e REQUEST, DR FAJARDO LISTED Primary Care Unavaila ble DERICK ., DR LAMA Admitting Unavailable DERICK ., DR LAMA Attending Unavailable REQUEST, DR FAJARDO LISTED Primary Care Unavaila ble WEST, DR MIRANDA Barrett Consulting Unavailable DERICK ., DR LAMA Consulting Unavailable DERICK ., DR LAMA Admitting Unavailable DERICK ., DR LAMA Attending Unavailable REQUEST, NONE LISTED Primary Care Unavaila ble DERICK ., DR LAMA Consulting Unavailable DERICK ., DR LAMA Attending Unavailable REQUEST, DR FAJARDO LISTED Primary Care Unavaila ble DERICK ., DR LAMA Consulting Unavailable DERICK ., DR LAMA Admitting Unavailable DERICK ., DR LAMA Admitting Unavailable DERICK ., DR LAMA Attending Unavailable REQUEST, NONE LISTED Primary Care Unavaila ble DERICK ., DR LAMA Consulting Unavailable ZIEBER, DR LOU Chávez Consulting Unavailable KELBY SEPULVEDA Attending Unavailable DERICK, KELBY Attending Unavailable DERICK, KELBY Attending Unavailable Onelia Winkler MD Primary Care Provider Digna Montero Unavailable Medications Current Medications Medication Drug Class(es) Dates Sig (Normalized) Sig (Original) ethinyl estradiol 0.035 mg / norgestimate 0.25 mg oral tablet (3 sources) Progestin, Estrogen Start: 08-05-2023 End: 05-03-2024 take 1 tablet by mouth once daily, then take 1 tablet by mouth once daily norgestimate-ethiny l estradiol (Sprintec 28) 0.25-35 MG-MCG tablet Indications: Well woman exam with routine gynecological exam Take 1 tablet by mouth Daily Take 1 tablet by mouth daily 84 tablet 3 02/09/2024 05/03/2024 Active Problems Active Problems Problem Classification Problem Date Documented Date Episodic/Chronic Cancer of cervix (1 source) High grade squamous intraepithelial lesion on cervical Papanicolaou smear; Translations: [High grade squamous intraepithelial lesion on cytologic smear of cervix (HGSIL)] 02-09-2024 Episodic Immunizations and screening for infectious disease (3 [...] unspecified, second trimester] Onset: 10-15-2021 Episodic Unclassified (11 sources) Encounter for screening for malignant neoplasm [...] MIRANDA ROPER Date: 2022-08-21 07:30 Normal [facility] AFP MATERNAL FOR SPINA BIFID Aon 08-09-2022 AFP MoM 1.14 Normal [facility] Comment on above: Performed By: #### [id number] #### [facility] [address] [place] [address] Dr. Farideh Kapoor AFP Value 73.2 ng/mL Normal [facility] Comment on above: Performed By: #### 4 [id number] #### [facility] [address] [place] [address] Dr. Farideh Kapoor AFP, Serum for Spina Bifida Report Normal [facility] Comment on above: Performed By: #### 4 [id number] #### [facility] [address] [place] [address] Dr. Farideh Kapoor Comment Comment Normal [facility] Comment on above: Result Comment: Reena Finn, Ph.D., [facility] Director . References: Available Upon Request. . Multiples Of Median Cutoffs For AFP Elevations [place] 2.5 Black 2.8 IDD 2.0 Twins 4.5 Abbreviation Definitions IDD - Insulin Dep Diabetes OSBR - Open Spina Bifida Risk . For further inquiries contact [facility] at [phone]. . This test was developed and its performance characteristics determined by [employer]. It has not been cleared or approved by the Food and Drug Administration. Performed By: #### 4 [id number] #### [facility] [address] [place] [address] Dr. Farideh Ferrer Age Collection Date 20.7 weeks Normal [facility] Comment on above: Performed By: #### 4 [id number] #### [facility] [address] [place] [address] Dr. Farideh Kapoor Gestat, Age Based on Ultrasound [facility] Comment on above: Result Comment: 17.1 on 07/12/2022 Recalculations are not recommended when gestational dating by LMP and ultrasound are within 10 days. Performed By: #### 4 [id number] #### [facility] [address] [place] [address] Dr. Farideh Kapoor Insulin Dep Diabetes No Normal [facility] Comment on above: Performed By: #### 4 [id number] #### [facility] [address] [place] [address] Dr. Farideh Kapoor Interpretation Comment Normal [facility] Comment on above: Result Comment: Inte rpretation: [...] Customer Services to discuss available options. The [employer] recommends amniocentesis be offered to women age 35 and older. Performed By: #### 4 [id number] #### [facility] [address] [place] [address] Dr. Farideh Kapoor [age] [facility] Comment on above: Performed By: #### 4 [id number] #### [facility] [address] [place] [address] Dr. Farideh Kapoor Multiple Gestation No Normal [facility] Comment on above: Performed By: #### 4 [id number] #### [facility] [address] [place] [address] Dr. Farideh Kapoor OSBR Risk 1 [place] [address] [facility] Comment on above: Performed By: #### 4 [id number] #### [facility] [address] [place] [address] Dr. Fairdeh Kapoor PDF . [facility] Comment on above: Performed By: #### 4 [id number] #### [facility] [address] [place] [address] Dr. Farideh Kapoor Race [facility] Comment on above: Performed By: #### 4 [id number] #### [facility] [address] [place] [address] Dr. Farideh Kapoor Test Results: Negative Normal [facility] Comment on above: Performed By: #### 4 [id number] #### [facility] [address] [place] [address] Dr. Farideh Kapoor HEP B SURFACE ANTIGEN SCREEN on 08-08-2022 HBsAg Screen Negative Normal Negative [facility] Comment on above: Performed By: #### H BSANS #### [facility] [address] [place] [address] Dr. Farideh Kapoor HEPATITIS C VIRUS AB W/ REFL EX QUANTon 08-08-2022 HCV AB Non-Reactive Normal Non Reactive [facility] Comment on above: Performed By: #### H CVPCRR #### [facility] [address] [place] [address] Dr. Farideh Kapoor Interpretation: Comment Normal [facility] Comment on above: Result Comment: Not infected with HCV unless early or acute infection is suspected (which may be delayed in an immunocompromised individual), or other evidence exists to indicate HCV infection. Performed By: #### H CVPCRR #### [facility] [address] [place] [address] Dr. Farideh Kapoor HIV 1 AND 2 WITH REFLEXon HIV Screen 4th Generation wRfx Non-Reactive Normal Non Reactive [facility] Comment on above: Result Comment: HIV Negative HIV-1/HIV-2 antibodies and HIV-1 p24 antigen were NOT detected. There is no laboratory evidence of HIV infection. Performed By: #### C BC #### [facility] [address] [place] [address] Dr. Farideh Kapoor RPR QUANTon 08-08-2022 Rapid Plasma Reagin, Quant Non-Reactive Normal NonRea<1:1 [facility] Comment on above: Result Comment: Plea se Note: This test does not meet current guidelines for screening and diagnosis of syphilis. This test is intended for following treatment response in patients being treated for syphilis infection. To screen for syphilis infection, a reflex cascade that includes both RPR and a treponema-specific assay should be utilized, such as Treponema pallidum (Syphilis) Screening [place] (590343) or Rapid Plasma Reagin (RPR) Test With Reflex to Quantitative RPR and Confirmatory Treponema pallidum Antibodies (732696). Performed By: #### 4 [id number] #### [facility] [address] [place] [address] Dr. Farideh Kapoor RUBELLA AB IGGon 08-08-2022 Rubella Antibodies, IgG <0.90 Critically low Immune >0.99 [facility] Comment on above: Result Comment: Non- immune <0.90 Equivocal 0.90 - 0.99 Immune >0.99 Performed By: #### 4 [id number] #### [facility] [address] [place] [address] Dr. Farideh Kapoor CBC AUTO DIFFon 08-06-2022 BASO # 0.0 103/ul Normal 0.0-0.1 [facility] Comment on above: Performed By: #### 4 [id number] #### [facility] [address] [place] [address] Dr. Farideh Kapoor Basophils/100 WBC (Bld) 0.2 % Normal 0.2-2.0 [facility] Comment on above: Performed By: #### 4 [id number] #### [facility] [address] [place] [address] Dr. Farideh Kapoor EO # 0.1 103/ul Normal 0.0-0.7 [facility] Comment on above: Performed By: #### 4 [id number] #### [facility] [address] [place] [address] Dr. Farideh Kapoor Eosinophils/100 WBC (Bld) 0.7 % Critically low 0.9-7.0 [facility] Comment on above: Performed By: #### 4 [id number] #### [facility] [address] [place] [address] Dr. Farideh Kapoor Erythrocyte distribution width (RBC) [Ratio] 13.2 % Normal 11.0-15.0 [facility] Comment on above: Performed By: #### 4 [id number] #### [facility] [address] [place] [address] Dr. Farideh Kapoor Hematocrit (Bld) [Volume fraction] 35.1 % Critically low 36.0-48.0 [facility] Comment on above: Performed By: #### 4 [id number] #### [facility] [address] [place] [address] Dr. Farideh Kapoor Hemoglobin (Bld) [Mass/Vol] 12.1 g/dL Normal 12.0-16.0 [facility] Comment on above: Performed By: #### 4 [id number] #### [facility] [address] [place] [address] Dr. Farideh Kapoor IG # 0.03 10e3/ul Normal 0.00-0.03 [facility] Comment on above: Performed By: #### 4 [id number] #### [facility] [address] [place] [address] Dr. Farideh Kapoor IG % 0.3 % Normal 0.0-0.5 [facility] Comment on above: Performed By: #### 4 [id number] #### [facility] [address] [place] [address] Dr. Farideh Kapoor LYMPH # 1.0 103/ul Critically low 1.2-3.8 [facility] Comment on above: Performed By: #### 4 [id number] #### [facility] [address] [place] [address] Dr. Farideh Kapoor Lymphocytes/100 WBC (Bld) 11.1 % Critically low 20.5-60.0 [facility] Comment on above: Performed By: #### 4 [id number] #### [facility] [address] [place] [address] Dr. Farideh Kapoor MANUAL DIFF REQ NO Normal [facility] Comment on above: Performed By: #### 4 [id number] #### [facility] [address] [place] [address] Dr. Farideh Kapoor MCH (RBC) [Entitic mass] 31.0 pg Normal 26.7-34.0 [facility] Comment on above: Performed By: #### 4 [id number] #### [facility] [address] [place] [address] Dr. Farideh Kapoor MCHC (RBC) [Mass/Vol] 34.5 g/dL Normal 29.9-35.2 [facility] Comment on above: Performed By: #### 4 [id number] #### [facility] [address] [place] [address] Dr. Farideh Kapoor MCV (RBC) [Entitic vol] 90.0 fL Normal 81.0-99.0 [facility] Comment on above: Performed By: #### 4 [id number] #### [facility] [address] [place] [address] Dr. Farideh Kapoor MONO # 0.4 103/ul Normal 0.3-0.8 [facility] Comment on above: Performed By: #### 4 [id number] #### [facility] [address] [place] [address] Dr. Farideh Kapoor Monocytes/100 WBC (Bld) 4.6 % Normal 1.7-12.0 [facility] Comment on above: Performed By: #### 4 [id number] #### [facility] [address] [place] [address] Dr. Farideh Kapoor NEUT # 7.4 103/ul Critically high 1.4-6.5 [facility] Comment on above: Performed By: #### 4 [id number] #### [facility] [address] [place] [address] Dr. Farideh Kapoor Neutrophils/100 WBC (Bld) 83.1 % Critically high 43.0-75.0 [facility] Comment on above: Performed By: #### 4 [id number] #### [facility] [address] [place] [address] Dr. Farideh Kapoor Platelet mean volume (Bld) [Entitic vol] 9.0 fL Critically low 9.5-13.5 [facility] Comment on above: Performed By: #### 4 [id number] #### [facility] [address] [place] [address] Dr. Farideh Kapoor PLT 257 103/ul Normal 150-450 [facility] Comment on above: Performed By: #### 4 [id number] #### [facility] [address] [place] [address] Dr. Farideh Kapoor RBC 3.90 106/ul Critically low 4.20-5.40 [facility] Comment on above: Performed By: #### 4 [id number] #### [facility] [address] [place] [address] Dr. Farideh Kapoor WBC 8.9 103/ul Normal 4.0-11.0 [facility] Comment on above: Performed By: #### 4 [id number] #### [facility] [address] [place] [address] Dr. Farideh Kapoor CULTURE URINEon 08-06-2022 CULTURE URINE Culture Observations : NO GROWTH. Normal [facility] Comment on above: Performed By: #### U RCX #### [facility] [address] [place] [address] Dr. Farideh Kapoor GLYCOHEMOGLOBIN A1Con 2022 ADA RECOMMENDATION SEE BELOW Normal [facility] Comment on above: Result Comment: ADA RECOMMENDED LIMIT 4.0 - 6.0 ADA THERAPEUTIC TARGET < 7.0 ACTION SUGGESTED > 7.0 Performed By: #### C BC #### [facility] [address] [place] [address] Dr. Farideh Kapoor Glucose [Mass/Vol] 74 mg/dL Normal [facility] Comment on above: Performed By: #### C BC #### [facility] [address] [place] [address] Dr. Farideh Kapoor HbA1c (Bld) [Mass fraction] 4.2 % Critically low 4.5-6.2 [facility] Comment on above: Performed By: #### C BC #### [facility] [address] [place] [address] Dr. Farideh Kapoor TSHon 08-06-2022 TSH 1.522 uIU/mL Normal 0.358-3.740 [facility] Comment on above: Performed By: #### T SH #### [facility] [address] [place] [address] Dr. Farideh Kapoor TYPE AND SCREENon 08-06-2022 TYPE AND SCREEN Negative Normal [facility] Comment on above: Performed By: #### T NS #### [facility] [address] [place] [address] Dr. Farideh Kapoor PREG DATING >14WEEKSon US PREG DATING >14WEEKS [...] weeks 1 day Electronically authenticated by: LOU VILLEGAS Date: 2022-07-12 10:40 Normal [facility] PAP ACOG PANEL 2: 21 to 29on 07-11-2022 . . Normal [facility] Comment on above: Performed By: #### 4 [id number] #### [facility] [address] [address] [address] Farideh Kapoor Age Gdln ACOG Testing Normal [facility] Comment on above: Performed By: #### 4 [id number] #### [facility] [address] [address] [address] Farideh Kapoor DIAGNOSIS: Comment Abnormal [facility] Comment on above: Result Comment: EPIT HELIAL CELL ABNORMALITY. LOW GRADE SQUAMOUS INTRAEPITHELIAL LESION (LSIL). Performed By: #### 4 [id number] #### [facility] [address] [address] [address] Farideh Kapoor Electronically signed by: Comment Normal [facility] Comment on above: Result Comment: Flavia Graham MD, Pathologist Performed By: #### 4 [id number] #### [facility] [address] [address] [address] Farideh Kapoor Methodology: Comment Normal [facility] Comment on above: Result Comment: This liquid based ThinPrep(R) pap test was screened with the use of an image guided system. Performed By: #### 4 [id number] #### [facility] [address] [place] [address] Dr. Farideh Kapoor Note: Comment Normal [facility] Comment on above: Result Comment: The Pap smear is a screening test designed to aid in the detection of premalignant and malignant conditions of the uterine cervix. It is not a diagnostic procedure and should not be used as the sole means of detecting cervical cancer. Both false-positive and false-negative reports do occur. . Performed By: #### 4 [id number] #### [facility] [address] [place] [address] Dr. Farideh Kapoor Pathologist Provided ICD10 Comment Normal [facility] Comment on above: Result Comment: [id number] Performed By: #### 4 [id number] #### [facility] [address] [place] [address] Dr. Farideh Kapoor Performed by: Comment Normal [facility] Comment on above: Result Comment: Anabell Ferraro, Advertising Teacher Performed By: #### 4 [id number] #### [facility] [address] [place] [address] Dr. Farideh Kapoor Recommendation: Comment Abnormal [facility] Comment on above: Result Comment: Sugg est follow up as clinically appropriate. Performed By: #### 4 [id number] #### [facility] [address] [place] [address] Dr. Farideh Kapoor Reflex Criteria: Comment Normal [facility] Comment on above: Result Comment: The HPV DNA reflex criteria were not met with this specimen result therefore, no HPV testing was performed. . Performed By: #### 4 [id number] #### [facility] [address] [place] [address] Dr. Farideh Kapoor Specimen adequacy: Comment Normal [facility] Comment on above: Result Comment: Sati sfactory for evaluation. Endocervical and/or squamous metaplastic cells (endocervical component) are present. Performed By: #### 4 [id number] #### [facility] [address] [place] [address] Dr. Farideh Kapoor CHLAMYDIA/GONOCOCCUS TOMAS ( AB/URINE/PAPon 07-05-2022 Chlamydia trachomatis, TOMAS Negative Normal Negative [facility] Comment on above: Performed By: #### C T/NGNA #### [facility] [address] [place] [address] Dr. Farideh Kapoor Neisseria gonorrhoeae, TOMAS Negative Normal Negative [facility] Comment on above: Performed By: #### C T/NGNA #### [facility] [address] [place] [address] Dr. Farideh Kapoor VAGINITIS/VAGINOSIS DNA PROB Arnel 07-04-2022 Margarita species Negative Normal Negative [facility] Comment on above: Performed By: #### 4 [id number] #### [facility] [address] [place] [address] Dr. Farideh Kapoor Gardnerella vaginalis Positive Abnormal Negative [facility] Comment on above: Performed By: #### 4 [id number] #### [facility] [address] [place] [address] Dr. Farideh Kapoor Trichomonas vaginalis Negative Normal Negative [facility] Comment on above: Performed By: #### 4 [id number] #### [facility] [address] [place] [address] Dr. Farideh Kapoor CBC AUTO DIFFon 10-10-2021 BASO # 0.0 103/ul Normal 0.0-0.1 [facility] Comment on above: Performed By: #### C BC #### [facility] [address] [place] [address] Dr. Farideh Kapoor Basophils/100 WBC (Bld) 0.2 % Normal 0.2-2.0 [facility] Comment on above: Performed By: #### C BC #### [facility] [address] [place] [address] Dr. Farideh Kapoor EO # 0.1 103/ul Normal 0.0-0.7 [facility] Comment on above: Performed By: #### C BC #### [facility] [address] [place] [address] Dr. Farideh Kapoor Eosinophils/100 WBC (Bld) 0.9 % Normal 0.9-7.0 [facility] Comment on above: Performed By: #### C BC #### [facility] [address] [place] [address] Dr. Farideh Kapoor Erythrocyte distribution width (RBC) [Ratio] 12.7 % Normal 11.0-15.0 [facility] Comment on above: Performed By: #### C BC #### [facility] [address] [place] [address] Dr. Farideh Kapoor Hematocrit (Bld) [Volume fraction] 31.9 % Critically low 36.0-48.0 [facility] Comment on above: Performed By: #### C BC #### [facility] [address] [place] [address] Dr. Farideh Kapoor Hemoglobin (Bld) [Mass/Vol] 11.2 g/dL Critically low 12.0-16.0 [facility] Comment on above: Performed By: #### C BC #### [facility] [address] [place] [address] Dr. Farideh Kapoor IG # 0.05 10e3/ul Critically high 0.00-0.03 [facility] Comment on above: Performed By: #### C BC #### [facility] [address] [place] [address] Dr. Farideh Kapoor IG % 0.4 % Normal 0.0-0.5 [facility] Comment on above: Performed By: #### C BC #### [facility] [address] [place] [address] Dr. Farideh Kapoor LYMPH # 1.3 103/ul Normal 1.2-3.8 [facility] Comment on above: Performed By: #### C BC #### [facility] [address] [place] [address] Dr. Farideh Kapoor Lymphocytes/100 WBC (Bld) 10.5 % Critically low 20.5-60.0 [facility] Comment on above: Performed By: #### C BC #### [facility] [address] [place] [address] Dr. Farideh Kapoor MANUAL DIFF REQ NO Normal [facility] Comment on above: Performed By: #### C BC #### [facility] [address] [place] [address] Dr. Farideh Kapoor MCH (RBC) [Entitic mass] 31.8 pg Normal 26.7-34.0 [facility] Comment on above: Performed By: #### C BC #### [facility] [address] [place] [address] Dr. Farideh Kapoor MCHC (RBC) [Mass/Vol] 35.1 g/dL Normal 29.9-35.2 [facility] Comment on above: Performed By: #### C BC #### [facility] [address] [place] [address] Dr. Farideh Kapoor MCV (RBC) [Entitic vol] 90.6 fL Normal 81.0-99.0 [facility] Comment on above: Performed By: #### C BC #### [facility] [address] [place] [address] Dr. Farideh Kapoor MONO # 1.2 103/ul Critically high 0.3-0.8 [facility] Comment on above: Performed By: #### C BC #### [facility] Laboratory [address] [place] [address] Dr. Farideh Kapoor Monocytes/100 WBC (Bld) 9.4 % Normal 1.7-12.0 [facility] Comment on above: Performed By: #### C BC #### [facility] Laboratory [address] [place] [address] Dr. Farideh Kapoor NEUT # 9.6 103/ul Critically high 1.4-6.5 [facility] Comment on above: Performed By: #### C BC #### [facility] [address] [place] [address] Dr. Farideh Kapoor Neutrophils/100 WBC (Bld) 78.6 % Critically high 43.0-75.0 [facility] Comment on above: Performed By: #### C BC #### [facility] [address] [place] [address] Dr. Farideh Kapoor Platelet mean volume (Bld) [Entitic vol] 9.2 fL Critically low 9.5-13.5 [facility] Comment on above: Performed By: #### C BC #### [facility] [address] [place] [address] Dr. Farideh Kapoor PLT 177 103/ul Normal 150-450 [facility] Comment on above: Performed By: #### C BC #### [facility] [address] [place] [address] Dr. Farideh Kapoor RBC 3.52 106/ul Critically low 4.20-5.40 [facility] Comment on above: Performed By: #### C BC #### [facility] [address] [place] [address] Dr. Farideh Kapoor WBC 12.3 103/ul Critically high 4.0-11.0 [facility] Comment on above: Performed By: #### C BC #### [facility] [address] [place] [address] Dr. Farideh Kapoor CBC AUTO DIFFon 10-09-2021 BASO # 0.0 103/ul Normal 0.0-0.1 [facility] Comment on above: Performed By: #### C BC #### [facility] [address] [place] [address] Dr. Farideh Kapoor Basophils/100 WBC (Bld) 0.1 % Critically low 0.2-2.0 [facility] Comment on above: Performed By: #### C BC #### [facility] [address] [place] [address] Dr. Farideh Kapoor EO # 0.1 103/ul Normal 0.0-0.7 [facility] Comment on above: Performed By: #### C BC #### [facility] [address] [place] [address] Dr. Farideh Kapoor Eosinophils/100 WBC (Bld) 1.1 % Normal 0.9-7.0 [facility] Comment on above: Performed By: #### C BC #### [facility] [address] [place] [address] Dr. Farideh Kapoor Erythrocyte distribution width (RBC) [Ratio] 12.7 % Normal 11.0-15.0 [facility] Comment on above: Performed By: #### C BC #### [facility] [address] [place] [address] Dr. Farideh Kapoor Hematocrit (Bld) [Volume fraction] 34.5 % Critically low 36.0-48.0 [facility] Comment on above: Performed By: #### C BC #### [facility] [address] [place] [address] Dr. Farideh Kapoor Hemoglobin (Bld) [Mass/Vol] 12.0 g/dL Normal 12.0-16.0 [facility] Comment on above: Performed By: #### C BC #### [facility] [address] [place] [address] Dr. Farideh Kapoor IG # 0.02 10e3/ul Normal 0.00-0.03 [facility] Comment on above: Performed By: #### C BC #### [facility] [address] [place] [address] Dr. Farideh Kapoor IG % 0.2 % Normal 0.0-0.5 [facility] Comment on above: Performed By: #### C BC #### [facility] [address] [place] [address] Dr. Farideh Kapoor LYMPH # 1.2 103/ul Normal 1.2-3.8 [facility] Comment on above: Performed By: #### C BC #### [facility] [address] [place] [address] Dr. Farideh Kapoor Lymphocytes/100 WBC (Bld) 13.0 % Critically low 20.5-60.0 [facility] Comment on above: Performed By: #### C BC #### [facility] [address] [place] [address] Dr. Farideh Kapoor MANUAL DIFF REQ NO Normal [facility] Comment on above: Performed By: #### C BC #### [facility] [address] [place] [address] Dr. Farideh Kapoor MCH (RBC) [Entitic mass] 31.4 pg Normal 26.7-34.0 [facility] Comment on above: Performed By: #### C BC #### [facility] [address] [address] [address] Farideh Kapoor MCHC (RBC) [Mass/Vol] 34.8 g/dL Normal 29.9-35.2 [facility] Comment on above: Performed By: #### C BC #### [facility] [address] [address] [address] Farideh Kapoor MCV (RBC) [Entitic vol] 90.3 fL Normal 81.0-99.0 [facility] Comment on above: Performed By: #### C BC #### [facility] [address] [address] [address] Farideh Kapoor MONO # 0.6 103/ul Normal 0.3-0.8 [facility] Comment on above: Performed By: #### C BC #### [facility] [address] [place] [address] Dr. Farideh Kapoor Monocytes/100 WBC (Bld) 7.0 % Normal 1.7-12.0 [facility] Comment on above: Performed By: #### C BC #### [facility] [address] [address] [address] Farideh Kapoor NEUT # 7.0 103/ul Critically high 1.4-6.5 [facility] Comment on above: Performed By: #### C BC #### [facility] [address] [place] [address] Dr. Farideh Kapoor Neutrophils/100 WBC (Bld) 78.6 % Critically high 43.0-75.0 [facility] Comment on above: Performed By: #### C BC #### [facility] [address] [address] [address] Farideh Kapoor Platelet mean volume (Bld) [Entitic vol] 9.4 fL Critically low 9.5-13.5 [facility] Comment on above: Performed By: #### C BC #### [facility] [address] [place] [address] Dr. aFrideh Kapoor PLT 213 103/ul Normal 150-450 [facility] Comment on above: Performed By: #### C BC #### [facility] [address] [address] [address] Farideh Kapoor RBC 3.82 106/ul Critically low 4.20-5.40 [facility] Comment on above: Performed By: #### C BC #### [facility] [address] [place], [place] [address] Dr. Farideh Kapoor WBC 8.9 103/ul Normal 4.0-11.0 [facility] Comment on above: Performed By: #### C BC #### [facility] [address] [address] [address] Farideh Kapoor Covid-19 PCR (CVDTB)on 09-20 SARS-CoV-2 (COVID-19) RNA TOMAS+probe Ql (Unsp spec) Not detected Normal NOT DETECTED [facility] Comment on above: Result Comment: When diagnostic [...] for this test is supported by the Supervisor Harvesting of Health and Human Service's declaration that [...] used). Performed By: #### C VDTBH #### [facility] [address] [place] [address] Dr. Farideh Kapoor DRUG SCREEN RAPID (URINE)on 10-09-2021 AMP Negative Normal NEGATIVE [facility] Comment on above: Performed By: #### C BC #### [facility] [address] [place], [place] [id number] Dr. Farideh Kapoor BAR Negative Normal NEGATIVE [facility] Comment on above: Performed By: #### C BC #### [facility] [address] [place] [address] Dr. Farideh Kapoor BUP Negative Normal NEGATIVE [facility] Comment on above: Performed By: #### C BC #### [facility] [address] [place] [address] Dr. Farideh Kapoor BZO Negative Normal NEGATIVE [facility] Comment on above: Performed By: #### C BC #### [facility] [address] [place] [address] Dr. Farideh Kapoor HERNESTO Negative Normal NEGATIVE [facility] Comment on above: Performed By: #### C BC #### [facility] [address] [place] [address] Dr. Farideh Kapoor CUT-OFFS SEE BELOW Normal [facility] Comment on above: Result Comment: AMP (Amphetamine): 500ng/mL, BAR (Barbituates): 200 ng/mL, BZO (Benzodiazepines): 150 ng/mL, BUP (Buprenorphine): 10 ng/mL, HERNESTO (Cocaine): 150 ng/mL, mAMP (Methamphetamine): 500 ng/mL, MTD (Methadone): 200 ng/mL, OPI (Opiates): 100 ng/mL, OXY (Oxycodone): 100 ng/mL, PCP (Phencyclidine): 25 ng/mL, PPX (Propoxyphene): 300 ng/mL, THC (Cannabinoids): 50 ng/mL, TCA (Trycyclic Antidepressants): 300 ng/mL Performed By: #### C BC #### [facility] [address] [place] [address] Dr. Farideh Kapoor DRUG CUT HEADER DRUG CLASS TEST SYST EM CUT-OFF CONCENTRATIONS ARE FOLLOWS: Normal [facility] Comment on above: Performed By: #### C BC #### [facility] [address] [place] [address] Dr. Farideh Kapoor mAMP Negative Normal NEGATIVE [facility] Comment on above: Performed By: #### C BC #### [facility] [address] [place] [address] Dr. Farideh Kapoor MTD Negative Normal NEGATIVE [facility] Comment on above: Performed By: #### C BC #### [facility] [address] [place] [address] Dr. Farideh Kapoor OPI Negative Normal NEGATIVE [facility] Comment on above: Performed By: #### C BC #### [facility] [address] [place] [address] Dr. Farideh Kapoor OXY Negative Normal NEGATIVE [facility] Comment on above: Performed By: #### C BC #### [facility] [address] [address] [address] Farideh Kapoor PCP Negative Normal NEGATIVE [facility] Comment on above: Performed By: #### C BC #### [facility] [address] [place] [address] Dr. Farideh Kapoor PPX Negative Normal NEGATIVE [facility] Comment on above: Performed By: #### C BC #### [facility] [address] [place] [address] Dr. Farideh Kapoor TCA Negative Normal NEGATIVE [facility] Comment on above: Performed By: #### C BC #### [facility] [address] [place] [address] Dr. Farideh Kapoor THC Negative Normal NEGATIVE [facility] Comment on above: Performed By: #### C BC #### [facility] [address] [place] [address] Dr. Farideh Kapoor TYPE AND SCREENon 10-09-2021 TYPE AND SCREEN Negative Normal [facility] Comment on above: Performed By: #### [id number] #### [facility] [address] [place] [address] Dr. Farideh Kapoor GROUP B STREP CULTUREon 06- S. agalactiae Ag Ql (Unsp spec) Culture Observations: NEGATIVE FOR GROUP B STREPTOCOCCUS. Normal [facility] Comment on above: Performed By: #### [id number] #### [facility] [address] [place] [address] Dr. Farideh Kapoor Chlamydia/GC DNA, TPon 02-03 Chlamydia Probe, TP Negative Normal NEG [facility] Comment on above: Result Comment: CHLA MYDIA TRACHOMATIS DNA not detected by nucleic acid amplification. Performed By: #### C YTCGP ####[address] [address] Gonorrhea Probe, TP Negative Normal NEG [facility] Comment on above: Result Comment: NEIS SERIA GONORRHOEAE DNA not detected by nucleic acid amplification.Performed at [address] [address] Performed By: #### C YTCGP ####[address] [address] Cytologyon 01-30-2017 Cytology (NOTE)[id number] Y LABORATORIESCONSULTING PATHOLOGISTS CORPORATIONANATOMIC [id number] [place] [phone] Fax: GYNECOLOGIC CYTOLOGY REPORTPatient Name: CUCO PAGE#: [id number] #[id number]:1: Cervical material, (ThinPrep vial, Imaging-assisted review)Clinical HistoryContraceptive useZ12.4 Encounter for screening for malignant neoplasm of cervixLMP: 01/29/2017INTERPRETATIONCer vical material, (ThinPrep vial, Imaging-assisted review):Specimen Adequacy: Unsatisfactory for evaluation.Specimen processed and examined but unsatisfactory for evaluation of epithelial abnormality due to: - Insufficient epithelial cell component, predominantly blood.Descriptive Diagnosis: Interpretation not possible due to unsatisfactory specimenadequacy. Advertising Teacher: JERAD Montano(ASCP)Electronically Signed Out/02/07/2017 Normal [facility] Chlamydia/GC,DNA Ampon 12-30 Chlamydia Probe POSITIVE: CHLAMYDIA TRACHOMATIS DNA detected by nucleic acid amplification. Abnormal NEG [facility] Comment on above: Performed By: #### S WCGP ####[address] [address] Gonorrhea Probe Negative Normal NEG [facility] Comment on above: Result Comment: NEIS SERIA GONORRHOEAE DNA not detected by nucleic acid amplification.Results reported to the [facility] per [place] Admin Code 3701 3 02 and 3701 3 12Performed at [address] [address] Performed By: #### S WC ####[address] [address] Cult,Urine,CCon 12-28-2016 Cult,Urine,CC Specimen Description .URINE Performed at [address] [place] [id number] ([phone] Special Requests .CLEAN CATCH URINE Performed at [address] [place] [address] ([phone] Culture ESCHERICHIA COLI >[id number] CFU/ML Performed at [address] [address] Report Status FINAL 12/28/2016SUSCEPTIBILITYOrg anism ECMethod MICAmikacin [...] SUSCEPTIBLETrimethoprim/Sul fa <=20 SUSCEPTIBLEPiperacillin/Ish obactam <=4 SUSCEPTIBLE Normal [facility] Comment on above: Performed By: #### C ANN ####[address] [phone] [place] [address] Vaginitis DNA Probeon 2016 Vaginitis DNA Probe Specimen Description .VAGINA Performed at [address] [place] [address] ([phone] Special Requests NOT REPORTEDDirect Exam POSITIVE for Margarita sp. NEGATIVE for Gardnerella vaginalis NEGATIVE for Trichomonas vaginalis Method of testing is a DNA probe intended for detection and identification of Margarita species, Gardnerella vaginalis, and Trichomonas vaginalis nucleic acid in vaginal fluid specimens from patients with symptoms of vaginitis/vaginosis. Performed at [address] [id number] ([phone] Report Status FINAL 12/27/2016 Normal [facility] Comment on above: Performed By: #### V AGDNA ####[address] [phone] [place] [address] Vital Signs Date Time Vital Sign Value Performing Clinician Facility 02-09-2024 09:50-0400 Body mass index (BMI) [Ratio] 24.24 kg/m2 Kelby Derick DO Work Phone: [facility] 02-09-2024 09:50-0400 Body weight 72.3 kg Kelby Derick DO Work Phone: [facility] 02-09-2024 09:50-0400 Diastolic blood pressure 68 mm[Hg] Kelby Derick DO Work Phone: [facility] 02-09-2024 09:50-0400 Systolic blood pressure 108 mm[Hg] Kelby Derick DO Work Phone: [facility] 08-09-2022 04:06-0400 Body weight 67.[address] KELBY SEPULVEDA . [facility] Comment on above: Performed By: #### [id number] #### [facility] [address] [place] [address] Dr. Farideh Kapoor Encounters Encounter Date Encounter Type Care Provider Facility Start: 02-09-2024 End: 02-09-2024 Bamboo flowsheet Kelby Derick DO Work Phone: [facility] Start: 02-09-2024 End: 02-09-2024 Bamboo flowsheet Kelby Derick DO Work Phone: [facility] Start: 02-09-2024 End: 02-09-2024 Office outpatient visit 15 minutes Kelby Sepulveda DO Work Phone: [facility] Comment on above: HSIL on Pap smear of cervix; Encounter for repeat Papanicolaou smear of cervix; Well woman exam with routine gynecological exam Start: 02-09-2024 End: 02-09-2024 Patient encounter procedure Kelby Derick DO Work Phone: [facility] Start: 09-25-2023 End: 09-25-2023 ambulatory KELBY SEPULVEDA Not Available Start: 08-26-2023 End: 08-26-2023 ambulatory KELBY SEPULVEDA Not Available Start: 08-05-2023 End: 08-05-2023 ambulatory KELBY SEPULVEDA Not Available Start: 08-19-2022 End: 08-20-[address] KELBY SEPULVEDA . Facility:[facility] Start: 08-06-2022 End: 08-07-[address] KELBY SEPULVEDA . Facility:[facility] Start: 07-12-2022 End: 07-13-[address] KELBY SEPULVEDA . Facility:[facility] Start: 07-02-2022 End: 07-02-[address] KELBY SEPULVEDA . Facility:[facility] Start: 10-15-2021 End: 10-15-[address] KELBY SEPULVEDA . Facility:[facility] Start: 10-09-2021 End: 10-11-2021 Evaluation and management of inpatient DR KELBY SEPULVEDA . Facility:[facility] Start: 09-21-2021 End: 09-21-[address] NASRA WHARTON . Facility:[facility] Start: 01-30-2017 End: 01-31-2017 Ambulatory DELILAH CHARLES [facility] Start: 12-26-2016 End: 12-27-2016 Ambulatory KRYSTINA SEGURA [facility] Procedures Date Procedure Procedure Detail Performing Clinician Start: 10-09-2021 Delivery of Products of Conception, External Approach DR KELBY SEPULVEDA . Start: 10-09-2021 Repair Perineum Skin , External Approach DR KELBY SEPULVEDA . Start: 01-30-2017 C.TRACHOMATIS N.GONO RRHOEAE DNA, THIN PREP KRYSTINA SEGURA Start: 01-30-2017 Cytopathology proced ure, preparation of smear, genital source KRYSTINA SEGURA Start: 12-26-2016 C.TRACHOMATIS N.GONO RRHOEAE DNA KRYSTINA SEGURA Start: 12-26-2016 VAGINITIS DNA PROBE EMMANUEL SEGURA Start: 12-26-2016 URINE CULTURE CLEAN CATCH KRYSTINA SEGURA Plan of Treatment Date Care Activity Detail Author Start: 06-15-2024 End: 06-15-2024 Patient encounter procedure 06/15/2024 9:00 AM EST Procedure Visit [facility] [address] [place] [id number] Kelby Sepulveda, DO [address] [place] [address] [facility] Start: 02-09-2024 End: 02-09-2024 Patient encounter procedure 02/09/2024 9:20 AM EDT Procedure Visit [facility] [address] [place] [address] Kelby Sepulveda, DO [address] [place] [address] Arrived [facility] Comment on above: Arrived Start: 2023 Influenza vaccination Influenza Vacc ine (#1) [facility] Cytology Cervical or vaginal smear or scraping study Pap Smear Pathology and Cytology Routine HSIL on Pap smear of cervix Encounter for repeat Papanicolaou smear of cervix Ordered: 02/09/2024 [facility] Work Phone: Comment on above: Ordered: 02/09/2024 Payers Date Payer Category Payer Private Health Insurance [employer] [id number] 2015 Unknown [id number] 1995 Unknown [id number] [id number]. 593 1995 Unknown [id number] 2.16.840.1.467101.3.579.2. 593 1995 Unknown [id number] 2.16.840.1.055446.3.579.2. 593 1995 Unknown [id number] 2.16.840.1.719992.3.579.2. 593 1995 Unknown [id number] 2.16.840.1.940252.3.579.2. 593 1995 Unknown [id number] 2.16.840.1.587071.3.579.2. 593 1995 Unknown [id number] 2.16.840.1.074440.3.579.2. 593 1995 Unknown [id number] 2.16.840.1.752543.3.579.2. 1259 1995 Unknown [id number] 2.16.840.1.287101.3.579.2. 1259 1995 Unknown [id number] 2.16.840.1.708791.3.579.2. 1259 1959 Unknown [id number] 1959 Unknown [id number] Social History Date Type Detail Facility Start: 09-06-2022 Tobacco smoking stat [facility] Never smoked tobacco [facility] Start: 09-06-2022 Tobacco use and exposure Smokeless t obacco non-user [facility] Start: 09-25-2023 End: 02-09-2024 Alcoholic beverage intake [facility] (finding[facility] Start: 08-26-2023 History of Social function [facility] Start: 05-07-2024 Tobacco use panel [facility] Start: 09-07-2022 Alcohol Comment occasional alcohol u se [facility] Start: 1995 Sex assigned at Not on file [facility] History of Present illness Narrative 02-09-2024 Delilah EnriquepkjoeCHILO - 02/09/2024 9:20 AM EDT Note Date & Type Note Facility 02-09-2024 History of Presen t illness Narrative Reason for Appointment: Patient ID: Lani Herman is a 28 y.o. female who presents for Repeat PAP Patient presents today for Repeat Pap. MEDICATIONS Current Outpatient Medications Medication Instructions norgestimate-ethinyl estradiol (Sprintec 28) 0.25-35 MG-MCG tablet 1 tablet, Oral, Daily, Take 1 tablet by mouth daily ALLERGIES No Known Allergies PROBLEMS Active Ambulatory Problems Diagnosis Date Noted No Active Ambulatory Problems Resolved Ambulatory Problems Diagnosis Date Noted No Resolved Ambulatory Problems Past Medical History: Diagnosis Date 6 weeks follow-up BMI 23.0-23.9, adult Vaginal delivery HISTORY PAST MEDICAL HISTORY SOCIAL HISTORY Past Medical History: Diagnosis Date 6 weeks follow-up BMI 23.0-23.9, adult Vaginal delivery x2 Social History Tobacco Use Smoking status: Never Smokeless tobacco: Never Substance Use Topics Alcohol use: Not Currently Comment: occasional alcohol use Drug use: Never FAMILY HISTORY Family History Problem Relation Name Age of Onset Migraines Sister Autism Daughter No Known Problems Son Hyperlipidemia Other SURGICAL HISTORY Past Surgical History: Procedure Laterality Date WISDOM TOOTH EXTRACTION teeth REVIEW OF SYSTEMS Review of Systems: Review of Systems All other systems reviewed and are negative. OBJECTIVE Objective: Physical Exam Constitutional: Appearance: Normal appearance. She is well-developed. Genitourinary: Vulva normal. Cardiovascular: Rate and Rhythm: Normal rate and regular rhythm. Pulmonary: Effort: Pulmonary effort is normal. Breath sounds: Normal breath sounds. Abdominal: General: Bowel sounds are normal. There is no distension. Palpations: Abdomen is soft. Tenderness: There is no abdominal tenderness. There is no guarding or rebound. Musculoskeletal: General: No swelling. Normal range of motion. Right lower leg: No edema. Left lower leg: No edema. Neurological: Mental Status: She is alert and oriented to person, place, and time. Skin: General: Skin is warm and dry. Psychiatric: Mood and Affect: Mood normal. Behavior: Behavior normal. Vitals and nursing note reviewed. Exam conducted with a stacker present. Vitals: Estimated body mass index is 24.24 kg/m as calculated from the following: Height as of 09/25/23: 5' 8 . Weight as of this encounter: 159 lb 6.4 oz. BP: 108/68 No LMP recorded. ASSESSMENT & PLAN ICD-10-CM 1. HSIL on Pap smear of cervix R87.613 Pap Smear 2. Encounter for repeat Papanicolaou smear of cervix Z12.4 Pap Smear Repeat Pap: Patient presents today for a repeat pap. Previous pap results were reviewed and noted to be HGSIL. Question regarding previous results were discussed. Repeat Pap was obtained without difficulty. Resent patients OCP for 3 month supply for 1 year. Follow Up: Patient is to return to the office in 4 months for another repeat pap. Documented by Delilah Kearns LPN on behalf of: Kelby Sepulveda DO documented in this encounter [facility] Evaluation note Note Date & Type Note Facility Evaluation note Diagnosis HSIL on Pap smear of cervix Encounter for repeat Papanicolaou smear of cervix Well woman exam with routine gynecological exam Routine gynecological examination documented in this encounter [facility] Summary Purpose Family History No Family History Records FoundNo Family History Records FoundNo Family History Records Found Advance Directives No Advanced Directives Records FoundNo Advanced Directives Records FoundNo Advanced Directives Records Found Additional Source Comments INFORMATION SOURCE (unrecogn ized section and content) DATE CREATED AUTHOR 10/14/2017 [facility] DATE CREATED AUTHOR AUTHOR'S ORGANIZ ATION 08/23/2022 [facility] DATE CREATED AUTHOR AUTHOR'S ORGANIZ ATION 09/26/2023 [facility] dical Specialists [employer] Care Teams (unrecognized sec tion and content) Supervisor Accounting Clerks Relationship Specialty Start Date End Date Onelia Winkler MD [address] [facility] [place] [id number] PCP - General Family Medicine 09/10/22 Digna Wilkinson PA [address] [place] [address] [place] [address] PCP - [facility] [place] [facility] 04/21/21 04/20/99 [employer] Relationship Specialty Start Date End Date Onelia Winkler MD [address] [facility] [place] [address] PCP - General Family Medicine 09/10/22 Digna Wilkinson PA [address] [place] [address] [place] [id number] PCP - [facility] [place] [facility] 04/21/21 04/20/99 Reason for Visit (unrecogniz ed section and content) Reason Comments Repeat PAP FOR RECORDS PERTAINING TO PATIENTS WHO ARE [...] BE BASED ON THE PRIMARY CLINICAL RECORDS. [employer] provides no warranty or guarantee of the accuracy or completeness of information in this document.
== END 2024-02-09 20:14 | disposition home or self-care (01) ==
LOC: LAB 20:13
PROVIDERS: PCP Family Medicine; Visit Provider Obstetrics & Gynecology
DX: Z01.419 Encounter for gynecological examination (general) (routine) without abnormal findings (principal); R87.613 High grade squamous intraepithelial lesion on cytologic smear of cervix (HGSIL)
CPT/HCPCS: 88175

== ENCOUNTER 2024-06-15 15:02 | Outpatient (REF) | payer OTHER, SELFPAY ==
--- OUTSIDE RECORDS SUMMARY | 2024-06-15 15:19 | XMS_ITS | CCD ---
Author Organization [facility] Care Team Providers Care Greenhouse Manager Name Role Phone KRYSTINA SEGURA Unavailable Unavailable [...] Unavailable ZIEBER, DR LOU Chávez Consulting Unavailable Cathi SANTAMARIA, Onelia Primary Care Provider Jaja MARIE, Digna Unavailable KELBY SEPULVEDA Attending Unavailable DERICK, KELBY Attending Unavailable KELBY SEPULVEDA Attending Unavailable KELBY SEPULVEDA Attending Unavailable Medications Current Medications Medication Drug Class(es) Dates Sig (Normalized) Sig (Original) ethinyl estradiol 0.035 mg / norgestimate 0.25 mg oral tablet (5 sources) Progestin, Estrogen Start: 08-05-2023 End: 05-03-2024 take 1 tablet by mouth once daily, then take 1 tablet by mouth once daily norgestimate-ethiny l estradiol (Sprintec 28) 0.25-35 MG-MCG tablet Indications: Well woman exam with routine gynecological exam Take 1 tablet by mouth Daily Take 1 tablet by mouth daily 84 tablet 3 02/09/2024 Active Problems Active Problems Problem Classification Problem [...] Test Name Value Interpretation Reference Range Facility [facility] IGP,RFX APTIMA HPV ALL P THon 02-17-2024 HPV APTIMA Negative Negative [facility] Comment on above: This nucleic acid am plification test detects fourteen high- risk HPV types (16,18,31,33,35,39,45,51,52,56,58,59,66,68) without differentiation. Performed at: [address] [id number] Parts Casting Machine Operator: Mehnaz Eng MD, Phone: [phone] Performed at: =[address] [id number] Parts Casting Machine Operator: Mehnaz Eng MD, Phone: [phone] Interpretation and review of laboratory results Abnormal [facility] PAP IG (IMAGE GUIDED) Note Abnormal . [facility] Comment on above: TESTS RESULT FLAG UN ITS REF RANGE LAB Clinician Provided Cytology Information Source.............Cervix;Endocervix No. of containers..01 ThinPrep Vial DIAGNOSIS: [A] 01 EPITHELIAL CELL ABNORMALITY. ATYPICAL SQUAMOUS CELLS OF UNDETERMINED SIGNIFICANCE (ASC-US). Recommendation: [A] 01 Suggest follow up as clinically appropriate. Specimen adequacy: 01 Satisfactory for evaluation. Endocervical and/or squamous metaplastic cells (endocervical component) are present. Performed by: Yfn Dockery, Campground Manager (ASC) Electronically si... Corrina Graham MD, Pathologist . 01 Pathologist ICD10: 01 R87.610 Note: Note 01 The Pap smear is a screening test designed to aid in the detection of premalignant and malignant conditions of the uterine cervix. It is not a diagnostic procedure and should not be used as the sole means of detecting cervical cancer. Both false-positive and false-negative reports do occur. Test Methodology: Note 01 This liquid based ThinPrep(R) pap test was screened with the use of an image guided system. . 01 See below for HPV testing results. FLAG LEGEND: L-Low Normal,H-High Normal,LL-Alert Low,HH-Alert High <-Panic Low,>-Panic High,A-Abnormal,AA-Critical Abnormal Performed at: [address] [id number] Mehnaz Eng MD, BRUSH-SPATULA CERVIX ENDOCERVIX [facility] US PREG CERVICAL LENGTHon US PREG CERVICAL [...] MIRANDA ROPER Date: 2022-08-21 07:30 Normal [facility] AFP MATERNAL FOR SPINA BIFID Aon 08-09-2022 AFP MoM 1.14 Normal [facility] Comment on above: Performed By: #### 4 [id number] #### [facility] [address] [place] [address] Dr. Farideh Kapoor AFP Value 73.2 ng/mL Normal [facility] Comment on above: Performed By: #### 4 [id number] #### [facility] [address] [address] [address] Farideh Kapoor AFP, Serum for Spina Bifida Report Normal [facility] Comment on above: Performed By: #### 4 [id number] #### [facility] [address] [address] [address] Farideh Kapoor Comment Comment Normal [facility] Comment on above: Result Comment: Reena Finn, Ph.D., [facility] Director . References: Available Upon Request. . Multiples Of Median Cutoffs For AFP Elevations [place] 2.5 Black 2.8 IDD 2.0 Twins 4.5 Abbreviation Definitions IDD - Insulin Dep Diabetes OSBR - Open Spina Bifida Risk . For further inquiries contact [employer] [facility] at [phone]. . This test was developed and its performance characteristics determined by [employer]. It has not been cleared or approved by the Food and Drug Administration. Performed By: #### 4 [id number] #### [facility] [address] [address] [address] Farideh Kapoor Gest Age Collection Date 20.7 weeks Normal [facility] Comment on above: Performed By: #### 4 [id number] #### [facility] [address] [place] [address] Dr. Farideh Kapoor Gestat, Age Based on Ultrasound Normal [facility] Comment on above: Result Comment: 17.1 on 07/12/2022 Recalculations are not recommended when gestational dating by LMP and ultrasound are within 10 days. Performed By: #### 4 [id number] #### [facility] [address] [place] [address] Dr. Farideh Kapoor Insulin Dep Diabetes No Normal [facility] Comment on above: Performed By: #### 4 [id number] #### [facility] [address] [place] [address] Dr. Farideh Kapoor Interpretation Comment Normal [facility] Comment on above: Result Comment: Inte [...] Customer Services to discuss available options. The [employer] recommends amniocentesis be offered to women age 35 and older. Performed By: #### 4 [id number] #### [facility] [address] [place] [address] Dr. Farideh Kapoor [age] Normal [facility] Comment on above: Performed By: #### 4 [id number] #### [facility] [address] [place] [address] Dr. Farideh Kapoor Multiple Gestation No Normal [facility] Comment on above: Performed By: #### 4 [id number] #### [facility] [address] [address] [address] Farideh Kapoor OSBR Risk 1 [place] 7850 Normal [facility] Comment on above: Performed By: #### 4 [id number] #### [facility] [address] [place] [address] Dr. Farideh Kapoor PDF . Normal [facility] Comment on above: Performed By: #### 4 [id number] #### [facility] [address] [place] [address] Dr. Farideh Kapoor Race Normal [facility] Comment on above: Performed By: #### 4 [id number] #### [facility] [address] [place] [address] Dr. Farideh Kapoor Test Results: Negative Normal [facility] Comment on above: Performed By: #### 4 [id number] #### [facility] [address] [place] [address] Dr. Farideh Kapoor HEP B SURFACE ANTIGEN SCREEN on 08-08-2022 HBsAg Screen Negative Normal Negative [facility] Comment on above: Performed By: #### H BSANS #### [facility] [address] [place] [address] Dr. Farideh Kapoor HEPATITIS C VIRUS AB W/ REFL EX QUANTon 08-08-2022 HCV AB Non-Reactive Normal Non Reactive [facility] Comment on above: Performed By: #### H CVPCRR #### [facility] [address] [place] [address] Dr. Farideh Kapoor Interpretation: Comment Normal [facility] Comment on above: Result Comment: Not infected with HCV unless early or acute infection is suspected (which may be delayed in an immunocompromised individual), or other evidence exists to indicate HCV infection. Performed By: #### H CVPCRR #### [facility] [address] [place] [address] Dr. Farideh Kapoor HIV 1 AND 2 WITH REFLEXon HIV Screen 4th Generation wRfx Non-Reactive Normal Non Reactive [facility] Comment on above: Result Comment: HIV Negative HIV-1/HIV-2 antibodies and HIV-1 p24 antigen were NOT detected. There is no laboratory evidence of HIV infection. Performed By: #### C BC #### [facility] [address] [place] [address] Dr. Farideh Kaporo RPR QUANTon 08-08-2022 Rapid Plasma Reagin, Quant Non-Reactive Normal NonRea<1:1 [facility] Comment on above: Result Comment: Plea se Note: This test does not meet current guidelines for screening and diagnosis of syphilis. This test is intended for following treatment response in patients being treated for syphilis infection. To screen for syphilis infection, a reflex cascade that includes both RPR and a treponema-specific assay should be utilized, such as Treponema pallidum (Syphilis) Screening [place] (033317) or Rapid Plasma Reagin (RPR) Test With Reflex to Quantitative RPR and Confirmatory Treponema pallidum Antibodies (082948). Performed By: #### 4 [id number] #### [facility] [address] [place] [address] Dr. Farideh Kapoor RUBELLA AB IGGon 08-08-2022 Rubella Antibodies, IgG <0.90 Critically low Immune >0.99 [facility] Comment on above: Result Comment: Non- immune <0.90 Equivocal 0.90 - 0.99 Immune >0.99 Performed By: #### 4 [id number] #### [facility] [address] [place] [address] Dr. Farideh Kapoor CBC AUTO DIFFon 08-06-2022 BASO # 0.0 103/ul Normal 0.0-0.1 [facility] Comment on above: Performed By: #### 4 [id number] #### [facility] [address] [place] [address] Dr. Farideh Kapoor Basophils/100 WBC (Bld) 0.2 % Normal 0.2-2.0 [facility] Comment on above: Performed By: #### 4 [id number] #### [facility] [address] [place] [address] Dr. Farideh Kapoor EO # 0.1 103/ul Normal 0.0-0.7 [facility] Comment on above: Performed By: #### 4 [id number] #### [facility] [address] [place] [address] Dr. Farideh Kapoor Eosinophils/100 WBC (Bld) 0.7 % Critically low 0.9-7.0 [facility] Comment on above: Performed By: #### 4 [id number] #### [facility] [address] [place] [address] Dr. Farideh Kapoor Erythrocyte distribution width (RBC) [Ratio] 13.2 % Normal 11.0-15.0 [facility] Comment on above: Performed By: #### 4 [id number] #### [facility] [address] [place] [address] Dr. Farideh Kapoor Hematocrit (Bld) [Volume fraction] 35.1 % Critically low 36.0-48.0 [facility] Comment on above: Performed By: #### 4 [id number] #### [facility] [address] [place] [address] Dr. Farideh Kapoor Hemoglobin (Bld) [Mass/Vol] 12.1 g/dL Normal 12.0-16.0 [facility] Comment on above: Performed By: #### 4 [id number] #### [facility] [address] [place] [address] Dr. Farideh Kapoor IG # 0.03 10e3/ul Normal 0.00-0.03 [facility] Comment on above: Performed By: #### 4 [id number] #### [facility] [address] [place] [address] Dr. Farideh Kapoor IG % 0.3 % Normal 0.0-0.5 [facility] Comment on above: Performed By: #### 4 [id number] #### [facility] [address] [place] [address] Dr. Farideh Kapoor LYMPH # 1.0 103/ul Critically low 1.2-3.8 [facility] Comment on above: Performed By: #### 4 [id number] #### [facility] [address] [place] [address] Dr. Farideh Kapoor Lymphocytes/100 WBC (Bld) 11.1 % Critically low 20.5-60.0 [facility] Comment on above: Performed By: #### 4 [id number] #### [facility] [address] [place] [address] Dr. Farideh Kapoor MANUAL DIFF REQ NO Normal [facility] Comment on above: Performed By: #### 4 [id number] #### [facility] [address] [place] [address] Dr. Farideh Kapoor MCH (RBC) [Entitic mass] 31.0 pg Normal 26.7-34.0 [facility] Comment on above: Performed By: #### 4 [id number] #### [facility] [address] [place] [address] Dr. Farideh Kapoor MCHC (RBC) [Mass/Vol] 34.5 g/dL Normal 29.9-35.2 [facility] Comment on above: Performed By: #### 4 [id number] #### [facility] [address] [place] [address] Dr. Farideh Kapoor MCV (RBC) [Entitic vol] 90.0 fL Normal 81.0-99.0 [facility] Comment on above: Performed By: #### 4 [id number] #### [facility] [address] [place] [address] Dr. Farideh Kapoor MONO # 0.4 103/ul Normal 0.3-0.8 [facility] Comment on above: Performed By: #### 4 [id number] #### [facility] [address] [place] [address] Dr. Farideh Kapoor Monocytes/100 WBC (Bld) 4.6 % Normal 1.7-12.0 [facility] Comment on above: Performed By: #### 4 [id number] #### [facility] [address] [place] [address] Dr. Farideh Kapoor NEUT # 7.4 103/ul Critically high 1.4-6.[address] [facility] Comment on above: Performed By: #### 4 [id number] #### [facility] [address] [address] [address] Farideh Kapoor Neutrophils/100 WBC (Bld) 83.1 % Critically high 43.0-75.0 [facility] Comment on above: Performed By: #### 4 [id number] #### [facility] [address] [address] [address] Farideh Kapoor Platelet mean volume (Bld) [Entitic vol] 9.0 fL Critically low 9.5-13.5 [facility] Comment on above: Performed By: #### 4 [id number] #### [facility] [address] [address] [address] Farideh Kapoor PLT 257 103/ul Normal 150-450 [facility] Comment on above: Performed By: #### 4 [id number] #### [facility] [address] [address] [address] Farideh Kapoor RBC 3.90 106/ul Critically low 4.20-5.40 [facility] Comment on above: Performed By: #### 4 [id number] #### [facility] [address] [address] [address] Farideh Kapoor WBC 8.9 103/ul Normal 4.0-11.0 [facility] Comment on above: Performed By: #### 4 [id number] #### [facility] [address] [address] [address] Farideh Kapoor CULTURE URINEon 08-06-2022 CULTURE URINE Culture Observations : NO GROWTH. Normal [facility] Comment on above: Performed By: #### U RCX #### [facility] [address] [place] [address] Dr. Farideh Kapoor GLYCOHEMOGLOBIN A1Con 2022 ADA RECOMMENDATION SEE BELOW Normal [facility] Comment on above: Result Comment: ADA RECOMMENDED LIMIT 4.0 - 6.0 ADA THERAPEUTIC TARGET < 7.0 ACTION SUGGESTED > 7.0 Performed By: #### C BC #### [facility] [address] [address] [address] Farideh Kapoor Glucose [Mass/Vol] 74 mg/dL Normal [facility] Comment on above: Performed By: #### C BC #### [facility] [address] [place], [place] [address] Dr. Farideh Kapoor HbA1c (Bld) [Mass fraction] 4.2 % Critically low 4.5-6.2 [facility] Comment on above: Performed By: #### C BC #### [facility] [address] [address] [address] Farideh Kapoor TSHon 08-06-2022 TSH 1.522 uIU/mL Normal 0.358-3.740 [facility] Comment on above: Performed By: #### T SH #### [facility] [address] [address] [address] Farideh Kapoor TYPE AND SCREENon 08-06-2022 TYPE AND SCREEN Negative Normal [facility] Comment on above: Performed By: #### T NS #### [facility] [address] [address] [address] Farideh Kapoor US PREG DATING >[id number] [...] by: LOU VILLEGAS Date: 2022-07-12 10:40 Normal [facility] PAP ACOG PANEL 2: 21 to 29on 07-11-2022 . . Normal [facility] Comment on above: Performed By: #### 4 [id number] #### [facility] [address] [place] [address] Dr. Farideh Kapoor Age Gdln ACOG Testing 21-29 Normal [facility] Comment on above: Performed By: #### 4 [id number] #### [facility] [address] [place] [address] Dr. Farideh Kapoor DIAGNOSIS: Comment Abnormal [facility] Comment on above: Result Comment: EPIT HELIAL CELL ABNORMALITY. LOW GRADE SQUAMOUS INTRAEPITHELIAL LESION (LSIL). Performed By: #### 4 [id number] #### [facility] [address] [place] [address] Dr. Farideh Kapoor Electronically signed by: Comment Normal [facility] Comment on above: Result Comment: Flavia Graham MD, Pathologist Performed By: #### 4 [id number] #### [facility] [address] [place] [address] Dr. Farideh Kapoor Methodology: Comment Normal [facility] Comment on above: Result Comment: This liquid based ThinPrep(R) pap test was screened with the use of an image guided system. Performed By: #### 4 [id number] #### [facility] [address] [place] [address] Dr. Farideh Kapoor Note: Comment Normal [facility] Comment on above: Result Comment: The Pap smear is a screening test designed to aid in the detection of premalignant and malignant conditions of the uterine cervix. It is not a diagnostic procedure and should not be used as the sole means of detecting cervical cancer. Both false-positive and false-negative reports do occur. . Performed By: #### 4 [id number] #### [facility] [address] [place] [address] Dr. Farideh Kapoor Pathologist Provided ICD10 Comment Normal [facility] Comment on above: Result Comment: R87. 612 Performed By: #### 4 [id number] #### [facility] [address] [place] [address] Dr. Farideh Kapoor Performed by: Comment Normal [facility] Comment on above: Result Comment: Anabell Ferraro, Campground Manager Performed By: #### 4 [id number] #### [facility] [address] [place] [address] Dr. Farideh Kapoor Recommendation: Comment Abnormal [facility] Comment on above: Result Comment: Sugg est follow up as clinically appropriate. Performed By: #### 4 [id number] #### [facility] [address] [place] [address] Dr. Farideh Kapoor Reflex Criteria: Comment Normal [facility] Comment on above: Result Comment: The HPV DNA reflex criteria were not met with this specimen result therefore, no HPV testing was performed. . Performed By: #### 4 [id number] #### [facility] [address] [place] [address] Dr. Farideh Kapoor Specimen adequacy: Comment Normal [facility] Comment on above: Result Comment: Sati sfactory for evaluation. Endocervical and/or squamous metaplastic cells (endocervical component) are present. Performed By: #### 4 [id number] #### [facility] [address] [place] [address] Dr. Farideh Kapoor CHLAMYDIA/GONOCOCCUS TOMAS ( AB/URINE/PAPon 07-05-2022 Chlamydia trachomatis, TOMAS Negative Normal Negative [facility] Comment on above: Performed By: #### C T/NGNA #### [facility] [address] [place] [address] Dr. Farideh Kapoor Neisseria gonorrhoeae, TOMAS Negative Normal Negative [facility] Comment on above: Performed By: #### C T/NGNA #### [facility] [address] [place] [address] Dr. Farideh Kapoor VAGINITIS/VAGINOSIS DNA PROB Arnel 07-04-2022 Margarita species Negative Normal Negative [facility] Comment on above: Performed By: #### 4 [id number] #### [facility] [address] [place] [address] Dr. Farideh Kapoor Gardnerella vaginalis Positive Abnormal Negative [facility] Comment on above: Performed By: #### 4 [id number] #### [facility] [address] [place] [address] Dr. Farideh Kapoor Trichomonas vaginalis Negative Normal Negative [facility] Comment on above: Performed By: #### 4 [id number] #### [facility] [address] [address] [address] Farideh Kapoor CBC AUTO DIFFon 10-10-2021 BASO # 0.0 103/ul Normal 0.0-0.1 [facility] Comment on above: Performed By: #### C BC #### [facility] [address] [address] [address] Farideh Kapoor Basophils/100 WBC (Bld) 0.2 % Normal 0.2-2.0 [facility] Comment on above: Performed By: #### C BC #### [facility] [address] [place] [address] Dr. Farideh Kapoor EO # 0.1 103/ul Normal 0.0-0.7 [facility] Comment on above: Performed By: #### C BC #### [facility] [address] [place] [address] Dr. Farideh Kapoor Eosinophils/100 WBC (Bld) 0.9 % Normal 0.9-7.0 [facility] Comment on above: Performed By: #### C BC #### [facility] [address] [place] [address] Dr. Farideh Kapoor Erythrocyte distribution width (RBC) [Ratio] 12.7 % Normal 11.0-15.0 [facility] Comment on above: Performed By: #### C BC #### [facility] [address] [place] [address] Dr. Farideh Kapoor Hematocrit (Bld) [Volume fraction] 31.9 % Critically low 36.0-48.0 [facility] Comment on above: Performed By: #### C BC #### [facility] [facility] [address] [place] [address] Dr. Farideh Kapoor Hemoglobin (Bld) [Mass/Vol] 11.2 g/dL Critically low 12.0-16.0 [facility] Comment on above: Performed By: #### C BC #### [facility] [address] [place] [address] Dr. Farideh Kapoor IG # 0.05 10e3/ul Critically high 0.00-0.03 [facility] Comment on above: Performed By: #### C BC #### [facility] [address] [place] [address] Dr. Farideh Kapoor IG % 0.4 % Normal 0.0-0.5 [facility] Comment on above: Performed By: #### C BC #### [facility] [address] [place] [address] Dr. Farideh Kapoor LYMPH # 1.3 103/ul Normal 1.2-3.8 [facility] Comment on above: Performed By: #### C BC #### [facility] [address] [place] [address] Dr. Farideh Kapoor Lymphocytes/100 WBC (Bld) 10.5 % Critically low 20.5-60.0 [facility] Comment on above: Performed By: #### C BC #### [facility] [address] [place] [address] Dr. Farideh Kapoor MANUAL DIFF REQ NO Normal [facility] Comment on above: Performed By: #### C BC #### [facility] [address] [place] [address] Dr. Farideh Kapoor MCH (RBC) [Entitic mass] 31.8 pg Normal 26.7-34.0 [facility] Comment on above: Performed By: #### C BC #### [facility] [address] [place] [address] Dr. Farideh Kapoor MCHC (RBC) [Mass/Vol] 35.1 g/dL Normal 29.9-35.2 [facility] Comment on above: Performed By: #### C BC #### [facility] [address] [place] [address] Dr. Farideh Kapoor MCV (RBC) [Entitic vol] 90.6 fL Normal 81.0-99.0 [facility] Comment on above: Performed By: #### C BC #### [facility] [address] [place] [address] Dr. Farideh Kapoor MONO # 1.2 103/ul Critically high 0.3-0.8 [facility] Comment on above: Performed By: #### C BC #### [facility] [address] [address] [address] Farideh Kapoor Monocytes/100 WBC (Bld) 9.4 % Normal 1.7-12.0 [facility] Comment on above: Performed By: #### C BC #### [facility] [address] [address] [address] Farideh Kapoor NEUT # 9.6 103/ul Critically high 1.4-6.[address] [facility] Comment on above: Performed By: #### C BC #### [facility] [address] [address] [address] Farideh Kapoor Neutrophils/100 WBC (Bld) 78.6 % Critically high 43.0-75.0 [facility] Comment on above: Performed By: #### C BC #### [facility] [address] [place] [address] Dr. Farideh Kapoor Platelet mean volume (Bld) [Entitic vol] 9.2 fL Critically low 9.5-13.5 [facility] Comment on above: Performed By: #### C BC #### [facility] [address] [place] [address] Dr. Farideh Kapoor PLT 177 103/ul Normal 150-450 [facility] Comment on above: Performed By: #### C BC #### [facility] [address] [place] [address] Dr. Farideh Kapoor RBC 3.52 106/ul Critically low 4.20-5.[address] [facility] Comment on above: Performed By: #### C BC #### [facility] [address] [place] [address] Dr. Farideh Kapoor WBC 12.3 103/ul Critically high 4.0-11.0 [facility] Comment on above: Performed By: #### C BC #### [facility] [address] [place] [address] Dr. Farideh Kapoor CBC AUTO DIFFon 10-09-2021 BASO # 0.0 103/ul Normal 0.0-0.1 [facility] Comment on above: Performed By: #### C BC #### [facility] [address] [place] [address] Dr. Farideh Kapoor Basophils/100 WBC (Bld) 0.1 % Critically low 0.2-2.0 [facility] Comment on above: Performed By: #### C BC #### [facility] [address] [place] [address] Dr. Farideh Kapoor EO # 0.1 103/ul Normal 0.0-0.7 [facility] Comment on above: Performed By: #### C BC #### [facility] [address] [place] [address] Dr. Farideh Kapoor Eosinophils/100 WBC (Bld) 1.1 % Normal 0.9-7.0 [facility] Comment on above: Performed By: #### C BC #### [facility] [address] [place] [address] Dr. Farideh Kapoor Erythrocyte distribution width (RBC) [Ratio] 12.7 % Normal 11.0-15.0 [facility] Comment on above: Performed By: #### C BC #### [facility] [address] [place] [address] Dr. Farideh Kapoor Hematocrit (Bld) [Volume fraction] 34.5 % Critically low 36.0-48.0 [facility] Comment on above: Performed By: #### C BC #### [facility] [address] [place] [address] Dr. Farideh Kapoor Hemoglobin (Bld) [Mass/Vol] 12.0 g/dL Normal 12.0-16.0 [facility] Comment on above: Performed By: #### C BC #### [facility] [address] [place] [address] Dr. Farideh Kapoor IG # 0.02 10e3/ul Normal 0.00-0.03 [facility] Comment on above: Performed By: #### C BC #### [facility] [address] [place] [address] Dr. Farideh Kapoor IG % 0.2 % Normal 0.0-0.5 [facility] Comment on above: Performed By: #### C BC #### [facility] [address] [place] [address] Dr. Farideh Kapoor LYMPH # 1.2 103/ul Normal 1.2-3.8 [facility] Comment on above: Performed By: #### C BC #### [facility] [address] [place] [address] Dr. Farideh Kapoor Lymphocytes/100 WBC (Bld) 13.0 % Critically low 20.5-60.0 [facility] Comment on above: Performed By: #### C BC #### [facility] [address] [place] [address] Dr. Farideh Kapoor MANUAL DIFF REQ NO Normal [facility] Comment on above: Performed By: #### C BC #### [facility] [address] [place] [address] Dr. Farideh Kapoor MCH (RBC) [Entitic mass] 31.4 pg Normal 26.7-34.0 [facility] Comment on above: Performed By: #### C BC #### [facility] [address] [place] [address] Dr. Farideh Kapoor MCHC (RBC) [Mass/Vol] 34.8 g/dL Normal 29.9-35.2 [facility] Comment on above: Performed By: #### C BC #### [facility] [address] [place] [address] Dr. Farideh Kapoor MCV (RBC) [Entitic vol] 90.3 fL Normal 81.0-99.0 [facility] Comment on above: Performed By: #### C BC #### [facility] [address] [place] [address] Dr. Farideh Kapoor MONO # 0.6 103/ul Normal 0.3-0.8 [facility] Comment on above: Performed By: #### C BC #### [facility] [address] [place] [address] Dr. Farideh Kapoor Monocytes/100 WBC (Bld) 7.0 % Normal 1.7-12.0 [facility] Comment on above: Performed By: #### C BC #### [facility] [address] [place] [address] Dr. Farideh Kapoor NEUT # 7.0 103/ul Critically high 1.4-6.[address] [facility] Comment on above: Performed By: #### C BC #### [facility] [address] [address] [address] Farideh Kapoor Neutrophils/100 WBC (Bld) 78.6 % Critically high 43.0-75.0 [facility] Comment on above: Performed By: #### C BC #### [facility] [address] [place] [address] Dr. Farideh Kapoor Platelet mean volume (Bld) [Entitic vol] 9.4 fL Critically low 9.5-13.5 [facility] Comment on above: Performed By: #### C BC #### [facility] [address] [place] [address] Dr. Farideh Kapoor PLT 213 103/ul Normal 150-450 [facility] Comment on above: Performed By: #### C BC #### [facility] [address] [place] [address] Dr. Farideh Kapoor RBC 3.82 106/ul Critically low 4.20-5.[address] [facility] Comment on above: Performed By: #### C BC #### [facility] [address] [place] [address] Dr. Farideh Kapoor WBC 8.9 103/ul Normal 4.0-11.0 [facility] Comment on above: Performed By: #### C BC #### [facility] [address] [place] [address] Dr. Farideh Kapoor Cov[facility]-19 [facility]20 SARS-CoV-2 (COVID-19) RNA TOMAS+probe Ql (Unsp spec) Not detected Normal NOT DETECTED [facility] Comment on above: Result Comment: When [...] for this test is supported by the [place] of Health and Human Service's declaration that [...] used). Performed By: #### C VDTBH #### [facility] [address] [place] [address] Dr. Farideh Kapoor DRUG SCREEN RAPID (URINE)on 10-09-2021 AMP Negative Normal NEGATIVE [facility] Comment on above: Performed By: #### C BC #### [facility] [address] [place] [address] Dr. Farideh Kapoor BAR Negative Normal NEGATIVE [facility] Comment on above: Performed By: #### C BC #### [facility] [address] [place] [address] Dr. Farideh Kapoor BUP Negative Normal NEGATIVE [facility] Comment on above: Performed By: #### C BC #### [facility] [address] [place] [address] Dr. Farideh Kapoor BZO Negative Normal NEGATIVE [facility] Comment on above: Performed By: #### C BC #### [facility] [address] [place] [address] Dr. Farideh Kapoor HERNESTO Negative Normal NEGATIVE [facility] Comment on above: Performed By: #### C BC #### [facility] [address] [place] [address] Dr. Farideh Kapoor CUT-OFFS SEE BELOW Normal [facility] Comment on above: Result Comment: AMP [...] ng/mL Performed By: #### C BC #### [facility] [address] [place] [address] Dr. Farideh Kapoor DRUG CUT HEADER DRUG CLASS TEST SYST EM CUT-OFF CONCENTRATIONS ARE FOLLOWS: Normal [facility] Comment on above: Performed By: #### C BC #### [facility] [address] [place] [address] Dr. Farideh Kapoor mAMP Negative Normal NEGATIVE [facility] Comment on above: Performed By: #### C BC #### [facility] [address] [place] [address] Dr. Farideh Kapoor MTD Negative Normal NEGATIVE [facility] Comment on above: Performed By: #### C BC #### [facility] [address] [place] [address] Dr. Farideh Kapoor OPI Negative Normal NEGATIVE [facility] Comment on above: Performed By: #### C BC #### [facility] [address] [place] [address] Dr. Farideh Kapoor OXY Negative Normal NEGATIVE [facility] Comment on above: Performed By: #### C BC #### [facility] [address] [place] [address] Dr. Farideh Kapoor PCP Negative Normal NEGATIVE [facility] Comment on above: Performed By: #### C BC #### [facility] [address] [place] [address] Dr. Farideh Kapoor PPX Negative Normal NEGATIVE [facility] Comment on above: Performed By: #### C BC #### [facility] [address] [place] [address] Dr. Farideh Kapoor TCA Negative Normal NEGATIVE [facility] Comment on above: Performed By: #### C BC #### [facility] [address] [place] [address] Dr. Farideh Kapoor THC Negative Normal NEGATIVE [facility] Comment on above: Performed By: #### C BC #### [facility] [address] [address] [address] Farideh Kapoor TYPE AND SCREENon 10-09-2021 TYPE AND SCREEN Negative Normal [facility] Comment on above: Performed By: #### [id number] #### [facility] [address] [address] [address] Farideh Kapoor GROUP B STREP CULTUREon S. agalactiae Ag Ql (Unsp spec) Culture Observations: NEGATIVE FOR GROUP B STREPTOCOCCUS. Normal [facility] Comment on above: Performed By: #### [id number] #### [facility] [address] [address] [address] Farideh Kapoor Chlamydia/GC DNA, TPon 02-03 Chlamydia Probe, TP Negative Normal NEG [facility] Comment on above: Result Comment: CHLA MYDIA TRACHOMATIS DNA not detected by nucleic acid amplification. Performed By: #### C YTCGP ####[address] [address] Gonorrhea Probe, TP Negative Normal NEG [facility] Comment on above: Result Comment: NEIS SERIA GONORRHOEAE DNA not detected by nucleic acid amplification.Performed at [address] [address] Performed By: #### C YTCGP ####[address] [address] Cytologyon 01-30-2017 Cytology (NOTE)[id number] Y LABORATORIESCONSULTING PATHOLOGISTS CORPORATIONANATOMIC [id number] [place] [address] [phone] Fax: GYNECOLOGIC CYTOLOGY REPORTPatient Name: CUCO PAGE#: [id number] #[id number]:1: Cervical material, (ThinPrep vial, Imaging-assisted review)Clinical HistoryContraceptive useZ12.4 Encounter for screening for malignant neoplasm of cervixLMP: 01/29/2017INTERPRETATIONCer vical material, (ThinPrep vial, Imaging-assisted review):Specimen Adequacy: Unsatisfactory for evaluation.Specimen processed and examined but unsatisfactory for evaluation of epithelial abnormality due to: - Insufficient epithelial cell component, predominantly blood.Descriptive Diagnosis: Interpretation not possible due to unsatisfactory specimenadequacy. Campground Manager: JERAD Montano(ASCP)Electronically Signed Outsz/02/07/2017 Normal [facility] Chlamydia/GC,DNA Ampon 12-30 Chlamydia Probe POSITIVE: CHLAMYDIA TRACHOMATIS DNA detected by nucleic acid amplification. Abnormal NEG [facility] Comment on above: Performed By: #### S WCGP ####[address] [address] Gonorrhea Probe Negative Normal NEG [facility] Comment on above: Result Comment: NEIS SERIA GONORRHOEAE DNA not detected by nucleic acid amplification.Results reported to the [facility] per [place] Admin Code 3701 3 02 and 3701 3 12Performed at [address] [address] Performed By: #### S WCGP ####[address] [address] Cult,Urine,CCon 12-28-2016 Cult,Urine,CC Specimen Description .URINE Performed at [address] [place] [address] ([phone] Special Requests .CLEAN CATCH URINE Performed at [address] [place] [id number] ([phone] Culture ESCHERICHIA COLI >[id number] CFU/ML Performed at [address] [address] Report Status FINAL 12/28/2016SUSCEPTIBILITYOrg anism ECMethod MICAmikacin [...] SUSCEPTIBLETrimethoprim/Sul fa <=20 SUSCEPTIBLEPiperacillin/Ish obactam <=4 SUSCEPTIBLE [facility] Comment on above: Performed By: #### C ANN ####[address] [phone] [id number] Vaginitis DNA Probeon 2016 Vaginitis DNA Probe Specimen Description .VAGINA Performed at [address] [place] [id number] ([phone] Special Requests NOT REPORTEDDirect Exam POSITIVE for Margarita sp. NEGATIVE for Gardnerella vaginalis NEGATIVE for Trichomonas vaginalis Method of testing is a DNA probe intended for detection and identification of Margarita species, Gardnerella vaginalis, and Trichomonas vaginalis nucleic acid in vaginal fluid specimens from patients with symptoms of vaginitis/vaginosis. Performed at [address] [address] Report Status FINAL 12/27/2016 [facility] Comment on above: Performed By: #### V AGDNA ####[address] [phone] [place] [address] Vital Signs Date Time Vital Sign Value Performing Clinician Facility 02-09-2024 09:50-0400 Body mass index (BMI) [Ratio] 24.24 kg/m2 Kelby Vanu Work Phone: [facility] 02-09-2024 09:50-0400 Body weight 72.3 kg Kelby Derick [employer] Work Phone: [facility] 02-09-2024 09:50-0400 Diastolic blood pressure 68 mm[Hg] Kelby Derick DO Work Phone: [facility] 02-09-2024 09:50-0400 Systolic blood pressure 108 mm[Hg] Kelby Derick DO Work Phone: [facility] 08-09-2022 04:06-0400 Body weight 67.[address] KELBY SEPULVEDA . [facility] Comment on above: Performed By: #### [id number] #### [facility] [address] [address] [address] Farideh Kapoor Encounters Encounter Date Encounter Type Care Provider Facility Start: 06-15-2024 End: 06-15-2024 Bamboo flowsheet Kelby Derick DO Work Phone: [facility] Start: 06-15-2024 End: 06-15-2024 Bamboo flowsheet Kelby Derick DO Work Phone: [facility] Start: 02-09-2024 End: 02-09-2024 Bamboo flowsheet Kelby Derick DO Work Phone: [facility] Start: 02-09-2024 End: 02-17-2024 Bamboo flowsheet Kelby Derick DO Work Phone: [facility] Start: 02-09-2024 End: 02-17-2024 Clinisync Result Encounter Kelby Derick DO Work Phone: [facility] External Department Unsolicited Start: 02-09-2024 End: 02-09-2024 Office outpatient visit 15 minutes Kelby Derick DO Work Phone: [facility] Comment on above: 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 Facility: Start: 01-30-2017 End: 01-31-2017 Ambulatory DELILAH CHARLES [facility] Start: 12-26-2016 End: 12-27-2016 [facility] Procedures Date Procedure Procedure Detail Performing Clinician Start: 02-09-2024 TBH IGP,RFX APTIMA H PV ALL PTH Kelby Sepulveda DO Work Phone: Start: 10-09-2021 Delivery of Products of Conception, [...] Start: 06-15-2024 End: 06-15-2024 Patient encounter procedure [facility] Comment on above: Arrived Start: 02-09-2024 End: 02-09-2024 Patient encounter procedure 02/09/2024 9:20 AM EDT Procedure Visit [facility] [address] [place] [id number] Kelby Sepulveda, [address] [facility] [place] [address] Arrived [facility] Comment on above: Arrived Start: 2023 Influenza vaccination Influenza Vacc ine (#1) [facility] Cytology Cervical or vaginal smear or scraping study Pap Smear Pathology and Cytology Routine HSIL on Pap smear of cervix Encounter for repeat Papanicolaou smear of cervix Ordered: 02/09/2024 [facility] Work Phone: Comment on above: Ordered: 02/09/2024 Payers Date Payer Category Payer Private Health Insurance [employer] [id number] 2015 Unknown [id number] 1995 Unknown [id number] [id number]. 593 1995 Unknown [id number] 2..840.1.016877.3.579.2. 593 1995 Unknown [id number] 2.840.1.356134.3.579.2. 593 1995 Unknown [id number] 2.16.840.1.557574.3.579.2. 593 1995 Unknown [id number] 2.16.840.1.412326.3.579.2. 593 1995 Unknown [id number] 2.16.840.1.679584.3.579.2. 593 1995 Unknown [id number] 2.16.840.1.918975.3.579.2. 593 1995 Unknown [id number] 2.16.840.1.827229.3.579.2. 1259 1995 Unknown [id number] 2.16.840.1.544839.3.579.2. 1259 1995 Unknown [id number] 2.16.840.1.834156.3.579.2. 1259 1995 Unknown [id number] 2.16.840.1.942208.3.579.2. 1259 1959 Unknown [id number] 1959 Unknown [id number] Social History Date Type Detail Facility Start: 09-06-2022 Tobacco smoking stat [facility] Never smoked tobacco [facility] Start: 09-06-2022 Tobacco use and exposure Smokeless t obacco non-user [facility] Start: 09-25-2023 End: 02-09-2024 Alcoholic beverage intake [facility] (finding[facility] Start: 08-26-2023 History of Social function [facility] Start: 08-26-2023 Tobacco use panel [facility] Start: 09-07-2022 Alcohol Comment occasional alcohol u se [facility] Start: 1995 Sex assigned at Not on file [facility] History of Present illness Narrative 02-09-2024 Delilah Kearns LPN - 02/09/2024 9:20 AM EDT Note Date [...] nursing note reviewed. Exam conducted with a block paver present. Vitals: Estimated body mass index is [...] CREATED AUTHOR AUTHOR'S ORGANIZ ATION 08/23/2022 [facility] DATE CREATED AUTHOR AUTHOR'S ORGANIZ ATION 02/10/2024 [facility] Care Teams (unrecognized sec tion and content) Greenhouse Manager Relationship Specialty Start Date End Date Onelia Winkler MD [address] [place] [phone] PCP - General Family Medicine 09/10/22 Digna Wilkinson PA [facility] [place] [address] PCP - Medical [facility] [employer] 04/21/21 04/20/99 Greenhouse Manager Relationship Specialty Start Date End Date Onelia Winkler MD [address] [place] [phone] PCP - General Family Medicine 09/10/22 Digna Wilkinson PA [address] [place] [address] PCP - Medical [employer] 04/21/21 04/20/99 Reason for Visit (unrecogniz [...] BE BASED ON THE PRIMARY CLINICAL RECORDS. [employer] provides no warranty or guarantee of the accuracy or completeness of information in this document.
[2024-06-17 13:08] LABS: HPV Aptima Negative (Negative); Pap IG (Image Guided) Note (.)
== END 2024-06-15 15:03 | disposition home or self-care (01) ==
LOC: LAB 15:02
PROVIDERS: PCP Family Medicine; Visit Provider Obstetrics & Gynecology
DX: R87.610 Atypical squamous cells of undetermined significance on cytologic smear of cervix (ASC-US) (principal)
CPT/HCPCS: 88175